=== PATIENT | male | born 1945 | race Caucasian/White ===

== ENCOUNTER 2020-01-18 11:27 | Outpatient (REF) | payer MEDICARE, SELFPAY ==
[2020-01-18 14:17] LABS: Hematocrit 45.1 % (42-52); Hemoglobin 14.9 g/dl (14.0-18.0); Mean Corpuscular Hemoglobin 28.7 pg (27.0-33.0); Mean Corpuscular Volume 86.9 fL (80-98); Mean Platelet Volume 11.5 fL (9.4-12.4); Platelet Count 200 X10*3/uL (160-400); Red Blood Count 5.19 X10*6/uL (4.60-5.80); Red Cell Distribution Width 12.4 % (11.0-16.0); White Blood Count 6.7 X10*3/uL (4.8-10.8)
[2020-01-18 14:58] LABS: Alanine Aminotransferase 22 U/L (0-40); Albumin Level 4.3 g/dL (3.5-5.0); Alkaline Phosphatase 70 U/L (39-117); Aspartate Amino Transferase 27 U/L (5-37); Bilirubin Direct 0.3 mg/dL (0.0-0.5); Bilirubin Total 0.9 mg/dL (0.0-1.0); Lipase 31 U/L (8-78); Total Protein 6.7 g/dL (6.5-8.0)
== END 2020-01-18 11:28 | disposition home or self-care (01) ==
LOC: HO.10HDL 11:27
PROVIDERS: Visit Provider Internal Medicine Gastroenterology
DX: R10.84 Generalized abdominal pain (principal)
CPT/HCPCS: 36415; 80076; 83690; 85027

== ENCOUNTER 2020-02-04 07:49 | Outpatient (REF) | payer MEDICARE, SELFPAY ==
--- NOTE | 2020-02-04 | US_ITS ---
EXAMINATION: US ABDOMEN COMPLETE CLINICAL INFORMATION: Abdominal pain. COMPARISON: None TECHNIQUE: Real-time imaging of the abdominal viscera. FINDINGS: PANCREAS: Normal. ABDOMINAL AORTA: The proximal, mid, and distal segments are normal in caliber. INFERIOR VENA CAVA: Visualized portions are normal. LIVER: Normal. The liver is normal in size. The liver contour is normal. Parenchymal echogenicity is normal. No focal hepatic lesion. There is no intrahepatic biliary duct dilatation seen. GALLBLADDER: Normal. The gallbladder is physiologically distended without evidence of stones, sludge, polyps, wall thickening or pericholecystic fluid. COMMON BILE DUCT: Normal in caliber measuring 0.32 cm in diameter. RIGHT KIDNEY: Normal. No hydronephrosis. No renal calculi or focal parenchymal lesions. The kidney measures 10.0 cm in maximum dimension. LEFT KIDNEY: Normal. No hydronephrosis. No renal calculi or focal parenchymal lesions. The kidney measures 12 cm in maximum dimension. SPLEEN: Normal. The spleen measures 9.4 cm in maximum dimension. FREE FLUID: None. US/US abdomen complete IMPRESSION: Unremarkable ultrasound abdomen complete.
== END 2020-02-04 07:50 | disposition home or self-care (01) ==
LOC: HO.US 07:49
PROVIDERS: Visit Provider Internal Medicine Gastroenterology
DX: R10.84 Generalized abdominal pain (principal)
CPT/HCPCS: 76700

== ENCOUNTER 2021-02-10 07:48 | Day surgery (SDC) | payer MEDICARE, SELFPAY ==
[2021-02-04 12:52] VITALS: BMI 27.8
--- NOTE | 2021-02-09 09:15 | HO.ANESPROP2 ---
Documented by User: Rianna Dumont NP 02/09/21 09:15 HPI - Anesthesia Eval Consult details Narrative: 75yo M for Upper Endoscopy and Colonoscopy ON LICENSE OF [facility] Past Medical History Medical History Pollard's esophagus BPH (benign prostatic hyperplasia) Elevated cholesterol HTN (hypertension) PTSD (post-traumatic stress disorder) Surgical History Surgical History History of esophagogastroduodenoscopy (EGD) Hx of colonoscopy Hx of hernia repair Hx of right knee surgery Hx of tonsillectomy Social History Social History Patient Tobacco Use Status: Former Tobacco user Quit Date: >40 yrs ago Tobacco use type: Cigarette Use of substances other than those prescribed or required for medical reasons: No Are you DNR?: No Advance Directives: No Advance Directives Information Provided: Yes Meds Allergies Allergy/AdvReac Type Severity Reaction Status Date / Time From DEMEROL Allergy Unknown UNKNOWN Uncoded 11/15/19 16:12 Home Medications Medication Instructions Recorded Confirmed Last Taken Type lisinopril 20 mg tablet 20 mg PO DAILY 02/04/21 02/04/21 Unknown History omeprazole 20 mg tablet,delayed 20 mg PO DAILY 02/04/21 02/04/21 Unknown History release psyllium 1 packet PO TID 02/04/21 02/04/21 Unknown History simvastatin 40 mg tablet 40 mg PO DAILY PRN 02/04/21 02/04/21 Unknown History Exam Exam Date and Time: February 09, 2021 0915 Height,Weight and Vital Signs: Height 5 ft 8 in Weight 83.007 kg Assessment and Plan Assessment Anesthesia Assessment: Chart Reviewed Documented by User: Jami Last MD 02/10/21 09:27 ON LICENSE OF [facility] Past Medical History Medical History Pollard's esophagus BPH (benign prostatic hyperplasia) Elevated cholesterol HTN (hypertension) PTSD (post-traumatic stress disorder) Family History Family history of problems with anesthesia: No Surgical History Surgical History History of esophagogastroduodenoscopy (EGD) Hx of colonoscopy Hx of hernia repair Hx of right knee surgery Hx of tonsillectomy History of Problems with Anesthesia: No Social History Social History Patient Tobacco Use Status: Former Tobacco user Quit Date: >40 yrs ago Tobacco use type: Cigarette Use of substances other than those prescribed or required for medical reasons: No Are you DNR?: No Advance Directives: No Advance Directives Information Provided: Yes Meds Allergies Allergy/AdvReac Type Severity Reaction Status Date / Time From DEMEROL Allergy Unknown UNKNOWN Uncoded 11/15/19 16:12 Home Medications Medication Instructions Recorded Confirmed Last Taken Type lisinopril 20 mg tablet 20 mg PO DAILY 02/04/21 02/04/21 Unknown History omeprazole 20 mg tablet,delayed 20 mg PO DAILY 02/04/21 02/04/21 Unknown History release psyllium 1 packet PO TID 02/04/21 02/04/21 Unknown History simvastatin 40 mg tablet 40 mg PO DAILY PRN 02/04/21 02/04/21 Unknown History Exam Height,Weight and Vital Signs: Height 5 ft 8 in Weight 83.007 kg Vital Signs Temp Pulse Resp BP Pulse Ox 02/10/21 08:24 98.4 F 70 16 129/77 98 Airway Mallampati Class: II TM Dist: >3cm Neck ROM: Full Heart: RRR Lungs: CTAB Assessment and Plan Assessment Anesthesia Assessment: Anesthesia Plan Discussed Final Anesthetic Review Family History of Problems with Anesthesia: No History of Problems with Anesthesia: No NPO: Yes ASA Class: II Final Preanesthetic Review: No Changes in Pt Med Stat, Meds/Allgs Chart Reviewed, Consent Obtained/Reviewed and Anes Risks/Benef Reviewed Patient Risk: Low Procedure Risk: Low Assessment/Block/Sedation in SS: Assess/Block/Sedation-SS Anesthetic Plan Anesthetic Plan: MAC: Disposition: Standard PACU
[2021-02-10 08:24] VITALS: BP 129/77; PULSE 70; RESP 16; TEMP 36.9; O2SAT 98
[2021-02-10] MEDS: Lactated Ringers 1,000 ML 100 ML IVCONT (08:39)
--- NOTE | 2021-02-10 09:04 | MHC.SHP ---
Pre-Procedural Eval Section A Date of Service: 02/10/21 The patient is an INPATIENT: No Changes since office visit: No Cold of Flu in the past 2 weeks, No New Medical Problems, No Changes in Medication and No Patient answered all questions The History & Physical has been completed within 30 days and I have reviewed it.: Yes Section B Chief Complaint: Pollard's, Fhx of colon cancer Allergies: Allergies Allergy/AdvReac Type Severity Reaction Status Date / Time From DEMEROL Allergy Unknown UNKNOWN Uncoded 11/15/19 16:12 Plan I have reviewed the history and physical and performed a pertinent physical examination on my patient. No changes have occurred unless specified.
--- NOTE | 2021-02-10 09:53 | PM.OP ---
Brief Operative Note Date of Service: 02/10/21 Pre-op diagnosis: barretts, screening Post-op diagnosis: same (colon polyps) Procedure: egd, colon Surgeon: Brian Brand Anesthesia: MAC Was an Building Trades Instructor used for this Procedure?: No Estimated blood loss (mL): 5 Pathology: other (bxs antrum, egj, rectal polyps) Condition: stable Disposition: PACU
[2021-02-10 09:57] VITALS: BP 80/50; PULSE 61; RESP 16; TEMP 36.5; O2SAT 98
--- NOTE | 2021-02-10 10:06 | OP_ITS ---
SURGEON: Brian Brand MD INDICATIONS: 1. Pollard's esophagus. 2. Colon cancer screening. PREOPERATIVE DIAGNOSIS: POSTOPERATIVE DIAGNOSIS: PROCEDURE PERFORMED: Upper endoscopy with biopsy, colonoscopy to the terminal ileum with biopsy. ESTIMATED BLOOD LOSS: COMPLICATIONS: ANESTHESIA: ASSISTANTS: SPECIMENS: MEDICATIONS: Monitored anesthesia care. DESCRIPTION OF PROCEDURE: History and physical performed. The risks and benefits of the procedure were explained to the patient. Informed consent was obtained. The patient was placed in the left lateral decubitus position. The Olympus video gastroscope was introduced into the esophagus, stomach, and duodenum. Examination was performed and the scope was removed. He was repositioned for colonoscopy. A digital rectal examination was performed and was found to be normal. The Olympus pediatric video colonoscope was introduced into the rectum and advanced to the cecum without difficulty. The cecum was identified by transillumination, palpation, and identification of ileocecal valve. Examination was performed and the scope was removed. He tolerated both procedures well and was returned to recovery area in stable condition. FINDINGS: UPPER ENDOSCOPY: Esophagus: The esophagus showed a less than 1 cm area of Pollard's esophagus with no raised lesions or ulcerated areas. Biopsies were obtained at the EG junction. Stomach: There was mild gastritis mainly in the fundus. Several benign-appearing gastric polyps were identified in the fundus as well measuring less than 10 mm. Antral biopsies were obtained. Duodenum: The bulb and second portion were normal. COLONOSCOPY: The terminal ileum was examined and appeared normal. The visualized colonic mucosa was normal. Quality of the prep was good. There was mild sigmoid diverticulosis. In the rectum, were 2 less than 5 mm polyps, which were removed with biopsy forceps. IMPRESSION: 1. Pollard's esophagus. 2. Colon polyps. RECOMMENDATIONS: 1. Follow up the biopsy results. 2. Further screening is optional based on the patient's age. MD SAUD Silverio/WAI / [phone]
[2021-02-10 10:12] VITALS: BP 111/63; PULSE 73; RESP 16; TEMP 36.5; O2SAT 97
== END 2021-02-10 10:41 | disposition home or self-care (01) ==
PROVIDERS: PCP Internal Medicine; Visit Provider Internal Medicine Gastroenterology
PROC: (CPT 45380; principal; 2021-02-10 09:00)
DX: Z12.11 Encounter for screening for malignant neoplasm of colon (principal); Z80.0 Family history of malignant neoplasm of digestive organs; K62.1 Rectal polyp; K57.30 Diverticulosis of large intestine without perforation or abscess without bleeding; K22.70 Barrett's esophagus without dysplasia; K29.50 Unspecified chronic gastritis without bleeding; K31.7 Polyp of stomach and duodenum; N40.0 Benign prostatic hyperplasia without lower urinary tract symptoms; I10 Essential (primary) hypertension; R00.0 Tachycardia, unspecified; E78.00 Pure hypercholesterolemia, unspecified; F43.10 Post-traumatic stress disorder, unspecified; Z79.899 Other long term (current) drug therapy; Z87.891 Personal history of nicotine dependence
CPT/HCPCS: 45380; 43239; 88305; 88342; J3010

== ENCOUNTER → 2022-02-02 11:23 | Outpatient (BNVA) | payer MEDICARE, SELFPAY | PROVIDERS: PCP Internal Medicine; Visit Provider Urology | DX: R97.20 Elevated prostate specific antigen [PSA] (principal); N40.0 Benign prostatic hyperplasia without lower urinary tract symptoms; N40.2 Nodular prostate without lower urinary tract symptoms | CPT/HCPCS: 51798; 99202 ==

== ENCOUNTER → 2022-02-24 13:00 | Outpatient (BNVA) | payer MEDICARE, SELFPAY | PROVIDERS: PCP Internal Medicine; Visit Provider Urology | DX: N40.2 Nodular prostate without lower urinary tract symptoms (principal); N40.0 Benign prostatic hyperplasia without lower urinary tract symptoms | CPT/HCPCS: 51798; 99212 ==

== ENCOUNTER 2022-03-23 12:02 | Outpatient (REF) | payer MEDICARE, SELFPAY ==
[2022-03-23 11:51] VITALS: BP 155/81; PULSE 76; RESP 16; TEMP 36.6; O2SAT 98; BMI 28.1
--- NOTE | 2022-03-23 12:16 | W.PM.OPN ---
Operative Note Operative Note Date of Service: 03/23/22 Narrative: Preoperative diagnosis: Elevated PSA Postoperative diagnosis: Elevated PSA Procedure: 1. transrectal ultrasound measurement of prostate 2. transrectal ultrasound-guided pudendal nerve block 3. transrectal ultrasound-guided prostate biopsy 12 core Surgeon: Dr. Jason Farley Anesthetic: Local Indications for procedure: Elevated PSA 4.6 Procedure: After informed consent was verified, the patient was brought into the procedure area and lay left-hand side down on the table. Patient identity confirmed. Perioperative antibiotics confirmed. Safety pause time out performed. LUCY performed to dilate rectal sphincter Iodine 10cc with Gel was placed per rectum Ultrasound probe was placed per rectum The prostate was measured in 3 dimensions Total volume equals 55 gm No cystic structures were noted No calcifications were noted at the surgical margin The prostate was otherwise heterogenous in nature An ultrasound-guided pudendal nerve block was performed using 10 cc of 1% lidocaine. 8 cc was placed at the base and 2 cc of the apex. A 12 core biopsy was performed with 6 cores each side. Two cores were taken at the apex, mid and base. Cores were spaced between lateral and medial. He tolerated the procedure well. Was able to ambulate to bathroom after 5 minutes. Printed instructions regarding antibiotic use and common side effects such as low-grade temperature, potential infection and bleeding were given Pathology: 12 core prostate biopsy.
[2022-03-23 12:19] VITALS: BP 131/60; PULSE 77; RESP 16; O2SAT 99
== END 2022-03-23 12:03 | disposition home or self-care (01) ==
LOC: HO.MS 12:02
PROVIDERS: PCP Internal Medicine; Visit Provider Urology
PROC: (CPT 55700; principal; 2022-03-23 12:00)
DX: R97.20 Elevated prostate specific antigen [PSA] (principal)
CPT/HCPCS: 55700; 76942; 88305

== ENCOUNTER → 2022-03-30 11:33 | Outpatient (BNVA) | payer MEDICARE, SELFPAY | PROVIDERS: PCP Internal Medicine; Visit Provider Urology | DX: C61 Malignant neoplasm of prostate (principal) | CPT/HCPCS: Q3014 ==

== ENCOUNTER → 2022-05-04 09:43 | Outpatient (BNVA) | payer MEDICARE, SELFPAY | PROVIDERS: PCP Internal Medicine; Visit Provider Urology | DX: C61 Malignant neoplasm of prostate (principal) | CPT/HCPCS: 96402; J9217 ==

== ENCOUNTER 2022-05-10 06:54 | Day surgery (SDC) | payer MEDICARE, SELFPAY ==
[2022-05-05 15:12] VITALS: BMI 28.1
--- NOTE | 2022-05-07 10:59 | HO.ANESPROP2 ---
HPI - Anesthesia Eval Consult details Narrative: 76yo M for Space OAR PMFSH Active Problems Active Problems: All Active Problems (Updated 03/30/22 @ 12:05 by Jason Farley MD) Prostate nodule (Acute) Elevated PSA (Acute) Prostate cancer (Acute) BPH (benign prostatic hyperplasia) (Acute) Past Medical History Medical History (Updated 03/30/22 @ 12:05 by Jason Farley MD) Pollard's esophagus BPH (benign prostatic hyperplasia) Elevated cholesterol HTN (hypertension) PTSD (post-traumatic stress disorder) Family History Family history of problems with anesthesia: No Surgical History Surgical History (Updated 05/05/22 @ 14:59 by Collette Douglas, RN) History of esophagogastroduodenoscopy (EGD) Hx of colonoscopy Hx of hernia repair Hx of prostate biopsy Hx of right knee surgery Hx of tonsillectomy History of Problems with Anesthesia: No Social History Social History Patient Tobacco Use Status: Former Tobacco user Quit Date: age 27 Tobacco use type: Cigarette Meds Allergies Allergy/AdvReac Type Severity Reaction Status Date / Time meperidine [From Demerol] Allergy Unknown Unknown Verified 05/05/22 10:48 Home Medications Medication Instructions Recorded Confirmed Last Taken Type lisinopril 20 mg tablet 20 mg PO DAILY 02/04/21 05/10/22 Unknown History omeprazole 20 mg tablet,delayed 20 mg PO DAILY 02/04/21 05/10/22 Unknown History release psyllium 1 packet PO TID 02/04/21 05/10/22 Unknown History simvastatin 40 mg tablet 40 mg PO DAILY PRN Constipation 02/04/21 05/10/22 Unknown History Exam Exam Date and Time: May 07, 2022 1059 Height,Weight and Vital Signs: Height 5 ft 8 in Weight 83.915 kg Assessment and Plan Assessment Anesthesia Assessment: Chart Reviewed Final Anesthetic Review Family History of Problems with Anesthesia: No History of Problems with Anesthesia: No
[2022-05-10 07:08] VITALS: BP 166/77; PULSE 75; RESP 18; TEMP 36.3; O2SAT 99; BMI 25.0
[2022-05-10] MEDS: Lactated Ringers 1,000 ML 100 ML IVCONT (07:45)
--- NOTE | 2022-05-10 07:49 | HO.ANESPROP2 ---
HPI - Anesthesia Eval Consult details Narrative: prostate ca for Space OAR PMFSH Active Problems Active Problems: All Active Problems (Updated 03/30/22 @ 12:05 by Jason Farley MD) Prostate nodule (Acute) Elevated PSA (Acute) Prostate cancer (Acute) BPH (benign prostatic hyperplasia) (Acute) Past Medical History Medical History (Updated 03/30/22 @ 12:05 by Jason Farley MD) Pollard's esophagus BPH (benign prostatic hyperplasia) Elevated cholesterol HTN (hypertension) PTSD (post-traumatic stress disorder) Family History Family history of problems with anesthesia: No Surgical History Surgical History (Updated 05/05/22 @ 14:59 by Collette Douglas RN) History of esophagogastroduodenoscopy (EGD) Hx of colonoscopy Hx of hernia repair Hx of prostate biopsy Hx of right knee surgery Hx of tonsillectomy History of Problems with Anesthesia: No Social History Social History Patient Tobacco Use Status: Former Tobacco user Quit Date: age 27 Tobacco use type: Cigarette Advance Directives: No Advance Directives Information Provided: Yes Meds Allergies Allergy/AdvReac Type Severity Reaction Status Date / Time meperidine [From Demerol] Allergy Unknown Unknown Verified 05/05/22 10:48 Active Medications: Current Medications Lactated Ringer's (Lr) 1,000 mls @ 100 mls/hr IVCONT .Q10H DONNA Last Admin: 05/10/22 07:45 Dose: 100 mls/hr Levofloxacin (Levaquin) 500 mg in 100 mls @ 100 mls/hr IV PREOP ONE Stop: 05/10/22 08:37 Home Medications Medication Instructions Recorded Confirmed Last Taken Type lisinopril 20 mg tablet 20 mg PO DAILY 02/04/21 02/02/22 Unknown History omeprazole 20 mg tablet,delayed 20 mg PO DAILY 02/04/21 02/02/22 Unknown History release psyllium 1 packet PO TID 02/04/21 02/02/22 Unknown History simvastatin 40 mg tablet 40 mg PO DAILY PRN Constipation 02/04/21 02/02/22 Unknown History Exam Exam Date and Time: May 10, 2022 0749 Height,Weight and Vital Signs: Height 5 ft 8 in Weight 74.843 kg Last Vital Signs Temp 97.4 F 05/10/22 07:08 Pulse 75 05/10/22 07:08 Resp 18 05/10/22 07:08 BP 166/77 H 05/10/22 07:08 Pulse Ox 99 05/10/22 07:08 O2 Del Method 05/10/22 07:08 Airway Mallampati Class: II Neck ROM: Full Heart: rr Lungs: cta Other: abdominal bruise from hormone shot Assessment and Plan Assessment Anesthesia Assessment: Anesthesia Plan Discussed and Chart Reviewed Final Anesthetic Review Family History of Problems with Anesthesia: No History of Problems with Anesthesia: No NPO: Yes ASA Class: II and III Final Preanesthetic Review: No Changes in Pt Med Stat, Meds/Allgs Chart Reviewed, Consent Obtained/Reviewed and Anes Risks/Benef Reviewed Patient Risk: Low Procedure Risk: Low Anesthetic Plan Anesthetic Plan: GA
--- NOTE | 2022-05-10 08:34 | MHC.SHP ---
Pre-Procedural Eval Section A Date of Service: 05/10/22 The patient is an INPATIENT: No Changes since office visit: No Cold of Flu in the past 2 weeks, No New Medical Problems, No Changes in Medication and No Patient answered all questions The History & Physical has been completed within 30 days and I have reviewed it.: Yes Section B Chief Complaint: Malignant neoplasm of prostate Allergies: Allergies Allergy/AdvReac Type Severity Reaction Status Date / Time meperidine [From Demerol] Allergy Unknown Unknown Verified 05/05/22 10:48 Plan Diagnosis/Plan: Unchanged ( prostate marker placement with space oar placement) I have reviewed the history and physical and performed a pertinent physical examination on my patient. No changes have occurred unless specified. Time Spent With Patient Time: Total time managing care of this patient today ____ minutes.
--- NOTE | 2022-05-10 09:35 | W.PM.OPN ---
Operative Note Operative Note Date of Service: 05/10/22 Narrative: Preoperative diagnosis: Prostate cancer Postoperative diagnosis: Prostate cancer Procedure: 1. Transrectal ultrasound-guided perineal gold seed placement 2. Treansrectal ultrasound-guided perineal SpaceOAR gel placement Surgeon: Dr. Jason Farley Anesthetic: Sedation Indications for procedure: Prostate Cancer Procedure: After informed consent was verified, the patient was brought into the operating room and anesthesia was performed per protocol. The patient was placed in a modified dorsal lithotomy position. Gel was placed per rectum Ultrasound probe was placed per rectum. The prostate was visualized in sagittal and transverse dimensions. Local anesthetic was infiltrated in the perineal area using 10 cc of lidocaine Visicoil seed markers were placed in a transperineal fashion using ultrasound guidance 2 gold seed markers placed in total. 1 on the right. 1 on the left. The purpose is for triangulation. The 2nd part of the procedure was placement of SpaceOAR gel to allow consolidation for radiation delivery. The delivery needle was advanced bevel down in the midline under ultrasound guidance to the apex of the prostate. It was advanced in the plane the prostate from the rectum to the midpoint of the prostate. Location was determined using sagittal and transverse imaging. At the midpoint of the prostate 1 cc of saline was placed to confirm needle position. A second cc of saline was placed to confirm spread toward the base of the prostate. With the needle in the confirmed position 10 cc of gel mixture was injected. Good separation was seen of the rectum from the prostate space running in the midline from the base toward the apex of the prostate. Following completion of the procedure the probe was removed from the rectum. He tolerated the procedure well. He was extubated in the operating room and transferred in stable condition to the recovery area. Pathology none Drains none
[2022-05-10 09:43] VITALS: BP 115/58; PULSE 80; RESP 14; TEMP 36.6; O2SAT 95
[2022-05-10 09:48] VITALS: BP 116/68; PULSE 73; RESP 16; O2SAT 95
[2022-05-10 09:53] VITALS: BP 123/64; PULSE 77; RESP 16; O2SAT 95
[2022-05-10] MEDS: Acetaminophen 325 MG TABLET 975 MG PO (09:56)
[2022-05-10 09:58] VITALS: BP 122/71; PULSE 77; RESP 16; O2SAT 95
[2022-05-10 10:13] VITALS: BP 128/69; PULSE 65; RESP 16; TEMP 36.6; O2SAT 97
== END 2022-05-10 10:32 | disposition home or self-care (01) ==
PROVIDERS: PCP Family Medicine; Visit Provider Urology
PROC: (CPT 55874; principal; 2022-05-10 08:20)
DX: C61 Malignant neoplasm of prostate (principal); N40.0 Benign prostatic hyperplasia without lower urinary tract symptoms; I10 Essential (primary) hypertension; E78.00 Pure hypercholesterolemia, unspecified; K22.70 Barrett's esophagus without dysplasia; F43.11 Post-traumatic stress disorder, acute; Z79.899 Other long term (current) drug therapy; Z88.8 Allergy status to other drugs, medicaments and biological substances; Z87.891 Personal history of nicotine dependence
CPT/HCPCS: 55874; 55876; A4648; C1889; J1956; J3010

== ENCOUNTER → 2022-08-11 10:19 | Outpatient (BNVA) | payer MEDICARE, SELFPAY | PROVIDERS: PCP Internal Medicine; Visit Provider Urology | DX: C61 Malignant neoplasm of prostate (principal) | CPT/HCPCS: 51798; 99212 ==

== ENCOUNTER 2022-10-29 08:28 | Outpatient (REF) | payer MEDICARE, SELFPAY ==
[2022-10-29 12:42] LABS: Prostate Specific Antigen < 0.10 ng/mL (<0.05-4.0)
[2022-11-04 13:08] LABS: Testosterone, Total 22 ng/dL (250-1100)
== END 2022-10-29 08:29 | disposition home or self-care (01) ==
LOC: HO.HMGCLDS 08:28
PROVIDERS: PCP Internal Medicine; Visit Provider Urology
DX: Z12.5 Encounter for screening for malignant neoplasm of prostate (principal); C61 Malignant neoplasm of prostate
CPT/HCPCS: 36415; 84153; 84403

== ENCOUNTER 2022-11-12 10:05 | Outpatient (AMB) | payer MEDICARE, SELFPAY ==
--- NOTE | 2022-11-12 10:06 | MHC.OFFVIS ---
Intake Intake Visit Reasons: 3m/PSA/Testosterone(pending) Intake Note: Patient presents for follow up PSA/Testosterone Urology Medications: none Blood Thinner: none Windows Systems Administrator Required: No Allergies meperidine [From Demerol] Allergy (Unknown, Verified 11/12/22 10:09) Unknown Medication List - Last Reconciled 11/12/22 by Jason Farley MD lisinopril 20 mg PO DAILY omeprazole 20 mg PO DAILY psyllium 1 packet PO TID simvastatin 40 mg PO DAILY PRN HPI HPI Comments History of Present Illness Details Avila is a pleasant male. He is a patient of Dr. Larkin as PCP and Dr[facility]. He is seen for the following urologic conditions - prostate cancer - prostate nodule Telemedicine Evaluation 15 min Consultation Doximity Omkar Video attempted Six months in GnRH Testosterone and PSA remain low Hot flashes resolving, has noted decline in strength with hormones Of note reports feeling more personable and the hormone blockade appears to have taken the edge of his PTSD Labs 11/20 P <0.1, T Prostate Cancer - 03/2223 grade group 2, initial PSA 4.2 - agent orange exposure 1968 through 07/20 completed radiation. [facility]. Twenty-five hyperfractionated sessions 05/20 SpaceOar Placement, GnRH administered 03/22 Biopsy Fifi score: 7 (3+4) (left: base, mid and apex), 6 (3+3) (right mid medial and right apex lateral) ?Number cores positive: 8, Total number of cores: 15 % of tissue involved: 13 % of all tissue examined Periprostatic fat invasion:Not identified, Seminal vesicle invasion: Not identified, Perineural invasion: Present, Lymphovascular invasion: Not identified Imaging - 02/18 prostate MRI 55 g left mid peripheral posterior extending to right apical medial peripheral lesion 2.4 x 0.7 cm lesion PI-RADS 5 Elevated PSA PSA 10/16 3.8, 10/19 4.2 Background of enlarged prostate for many years Minimal urinary symptoms LUCY 2+ prostate nodule left apex Imaging - 02/18 prostate MRI 55 g left mid peripheral posterior extending to right apical medial peripheral lesion 2.4 x 0.7 cm lesion PI-RADS 5 PFSH Medical History Pollard's esophagus BPH (benign prostatic hyperplasia) PTSD (post-traumatic stress disorder) Elevated cholesterol HTN (hypertension) Surgical History Hx of prostate biopsy Hx of hernia repair Hx of tonsillectomy Hx of colonoscopy History of esophagogastroduodenoscopy (EGD) Hx of right knee surgery Social History Patient Tobacco Use Status: Former Tobacco user Quit Date: age 27 Tobacco use type: Cigarette Review of Systems Const All systems reviewed & are unremarkable except as noted in HPI and below Reports no additional complaints Resp Reports no additional complaints GI Reports no additional complaints Reports as per HPI Musc Reports no additional complaints Physical Exam Telemedicine evaluation Appropriate responses Regular breathing rate and rhythm HEENT Head: Yes normal to inspection Ears: hearing grossly normal bilaterally Eyes General: appearance normal, both eyes and all related structures Neck Neck: Yes normal visual inspection Chest Chest palpation & inspection: normal inspection of the chest Resp Effort & Inspection: normal respiratory effort and able to speak in complete sentences Assessment & Plan Assessment & Plan (1) Prostate cancer: Comment: 03/22 clinically localized intermediate risk favorable Code(s): C61 - Malignant neoplasm of prostate Plan Four month follow-up labs Orders: Orders Prostate Specific Antigen 4 Months C61 - Malignant neoplasm of prostate Testosterone, Total 4 Months C61 - Malignant neoplasm of prostate Patient Instructions: Imaging studies, laboratory and physical exam results were discussed and reviewed in detail. No major barriers to patient understanding were identified. An opportunity to ask questions regarding the treatment plan was provided. All questions were answered. The patient expressed understanding and agreement with the above treatment plan. The patient is aware they should contact our office by phone for worsening of their current condition or the appearance of new urologic symptoms. Compliance is encouraged with any medications and followup testing that is ordered. It is a privilege to participate in the urologic care of your patient. If you have any questions or concerns regarding treatment for the above conditions, or other urologic issues, please do not hesitate to contact me. The office telephone contact is [phone]. This note is constructed using voice recognition software. While every effort has been made to ensure accuracy business education instructor errors may have been included. Yours sincerely, Dr Jason Farley MD, [facility] - Urology Providers of Expert, Compassionate Care for the Genitourinary System Telehealth Telehealth Location of provider rendering services: practice address Location of patient: address on file Patient Identification confirmed using: Name, : Yes Telehealth method: voice only Patient verbally consented to treatment: Yes Patient verbally consented to billing insurance company: Yes Patient informed of any privacy concerns related to visit: Yes Coding Level of Care Code Tele Est Pt Level 3 (05755) Diagnoses Prostate cancer C61
== END 2022-11-12 10:28 | disposition home or self-care (01) ==
LOC: HO.HUSH 10:06
PROVIDERS: PCP Internal Medicine; Visit Provider Urology
DX: C61 Malignant neoplasm of prostate (principal)
CPT/HCPCS: 99442

== ENCOUNTER → 2022-11-12 10:05 | Outpatient (BNVA) | payer MEDICARE, SELFPAY | PROVIDERS: PCP Internal Medicine; Visit Provider Urology ==

== ENCOUNTER 2023-03-09 11:53 | Outpatient (REF) | payer MEDICARE, SELFPAY ==
[2023-03-09 15:52] LABS: Prostate Specific Antigen < 0.10 ng/mL (<0.05-4.0)
[2023-03-15 16:43] LABS: Testosterone, Total 66 ng/dL (250-1100)
== END 2023-03-09 11:54 | disposition home or self-care (01) ==
LOC: HO.HMGCLDS 11:53
PROVIDERS: PCP Internal Medicine; Visit Provider Urology
DX: C61 Malignant neoplasm of prostate (principal); Z12.5 Encounter for screening for malignant neoplasm of prostate
CPT/HCPCS: 36415; 84153; 84403

== ENCOUNTER 2023-03-24 15:04 | Outpatient (AMB) | payer MEDICARE, SELFPAY ==
--- NOTE | 2023-03-24 15:05 | MHC.OFFVIS ---
Intake Intake Visit Reasons: PSA/Testo(set) Intake Note: Patient is Present for Telephone Follow Up labs Urology Med: None Antibiotic Allergy:none Blood Thinner:none Allergies meperidine [From Demerol] Allergy (Unknown, Verified 11/12/22 10:09) Unknown Medication List - Last Reconciled 03/24/23 by Jason Farley MD lisinopril 20 mg PO DAILY omeprazole 20 mg PO DAILY psyllium 1 packet PO TID simvastatin 40 mg PO DAILY PRN HPI HPI Comments History of Present Illness Details Avila is a pleasant male. He is a patient of Dr. Larkin as PCP and Dr[facility] Lopez as [facility]. He is seen for the following urologic conditions - prostate cancer - prostate nodule Telemedicine Evaluation 15 min Consultation Doximity Omkar Video attempted Slowly recovering testosterone PSA remains well controlled May come off finasteride Did note during GnRH feeling more personable and the hormone blockade appears to have taken the edge of his PTSD Labs 11/20 P <0.1, T 22, 03/23 <0.1 T 66 Prostate Cancer - 03/2223 grade group 2, initial PSA 4.2 - agent orange exposure 1968 through 07/20 completed radiation. [facility]. Twenty-five hyperfractionated sessions 05/20 SpaceOar Placement, GnRH administered 03/22 Biopsy Fifi score: 7 (3+4) (left: base, mid and apex), 6 (3+3) (right mid medial and right apex lateral) ?Number cores positive: 8, Total number of cores: 15 % of tissue involved: 13 % of all tissue examined Periprostatic fat invasion:Not identified, Seminal vesicle invasion: Not identified, Perineural invasion: Present, Lymphovascular invasion: Not identified Imaging - 02/18 prostate MRI 55 g left mid peripheral posterior extending to right apical medial peripheral lesion 2.4 x 0.7 cm lesion PI-RADS 5 Elevated PSA PSA 10/16 3.8, 10/19 4.2 Background of enlarged prostate for many years Minimal urinary symptoms LUCY 2+ prostate nodule left apex Imaging - 02/18 prostate MRI 55 g left mid peripheral posterior extending to right apical medial peripheral lesion 2.4 x 0.7 cm lesion PI-RADS 5 PFSH Medical History Pollard's esophagus BPH (benign prostatic hyperplasia) PTSD (post-traumatic stress disorder) Elevated cholesterol HTN (hypertension) Surgical History Hx of prostate biopsy Hx of hernia repair Hx of tonsillectomy Hx of colonoscopy History of esophagogastroduodenoscopy (EGD) Hx of right knee surgery Social History Patient Tobacco Use Status: Former Tobacco user Quit Date: age 27 Tobacco use type: Cigarette Review of Systems Const All systems reviewed & are unremarkable except as noted in HPI and below Reports no additional complaints Resp Reports no additional complaints GI Reports no additional complaints Reports as per HPI Musc Reports no additional complaints Physical Exam Telemedicine evaluation Appropriate responses Regular breathing rate and rhythm HEENT Head: Yes normal to inspection Ears: hearing grossly normal bilaterally Eyes General: appearance normal, both eyes and all related structures Neck Neck: Yes normal visual inspection Chest Chest palpation & inspection: normal inspection of the chest Resp Effort & Inspection: normal respiratory effort and able to speak in complete sentences Assessment & Plan Assessment & Plan (1) Prostate cancer: Comment: 03/22 clinically localized intermediate risk favorable Code(s): C61 - Malignant neoplasm of prostate Plan Continue surveillance Orders: Orders Prostate Specific Antigen 4 Months C61 - Malignant neoplasm of prostate Testosterone, Total 4 Months C61 - Malignant neoplasm of prostate Patient Instructions: Imaging studies, laboratory and physical exam results were discussed and reviewed in detail. No major barriers to patient understanding were identified. An opportunity to ask questions regarding the treatment plan was provided. All questions were answered. The patient expressed understanding and agreement with the above treatment plan. The patient is aware they should contact our office by phone for worsening of their current condition or the appearance of new urologic symptoms. Compliance is encouraged with any medications and followup testing that is ordered. It is a privilege to participate in the urologic care of your patient. If you have any questions or concerns regarding treatment for the above conditions, or other urologic issues, please do not hesitate to contact me. The office telephone contact is [phone]. This note is constructed using voice recognition software. While every effort has been made to ensure accuracy child support specialist errors may have been included. Yours sincerely, Dr Jason Farley MD, BETTY [facility] - Urology Providers of Expert, Compassionate Care for the Genitourinary System Telehealth Telehealth Location of provider rendering services: practice address Location of patient: address on file Patient Identification confirmed using: Name, : Yes Telehealth method: voice only Patient verbally consented to treatment: Yes Patient verbally consented to billing insurance company: Yes Patient informed of any privacy concerns related to visit: Yes Coding Level of Care Code Tele Est Pt Level 4 (94815) Diagnoses Prostate cancer C61
== END 2023-03-24 15:55 | disposition home or self-care (01) ==
LOC: HO.HUSH 15:04
PROVIDERS: PCP Internal Medicine; Visit Provider Urology
DX: C61 Malignant neoplasm of prostate (principal)
CPT/HCPCS: 99442

== ENCOUNTER → 2023-03-24 15:04 | Outpatient (BNVA) | payer MEDICARE, SELFPAY | PROVIDERS: PCP Internal Medicine; Visit Provider Urology ==

== ENCOUNTER 2023-06-28 08:34 | Outpatient (REF) | payer MEDICARE, SELFPAY ==
[2023-06-28 11:14] LABS: Prostate Specific Antigen 0.13 ng/mL (<0.05-4.0)
[2023-07-02 14:53] LABS: Testosterone, Total 388 ng/dL (250-1100)
== END 2023-06-28 08:35 | disposition home or self-care (01) ==
LOC: HO.HMGCLDS 08:34
PROVIDERS: PCP Internal Medicine; Visit Provider Urology
DX: C61 Malignant neoplasm of prostate (principal); Z12.5 Encounter for screening for malignant neoplasm of prostate
CPT/HCPCS: 36415; 84153; 84403

== ENCOUNTER 2023-07-26 10:10 | Outpatient (AMB) | payer MEDICARE, SELFPAY ==
--- NOTE | 2023-07-26 10:19 | MHC.OFFVIS ---
Intake Visit Reasons: 4M PSA/Testosterone(set) Allergies meperidine [From Demerol] Allergy (Unknown, Verified 11/12/22 10:09) Unknown HPI Comments Details: Avila is a pleasant male. He is a patient of Dr. Larkin as PCP and Dr[facility] Lopez as [facility]. He is seen for the following urologic conditions - prostate cancer - prostate nodule Testosterone recovered PSA control Continue to follow every 4 months Labs 11/20 P <0.1, T 22, 03/23 <0.1 T 66, 06/21 P 0.13 T 388 Prostate Cancer - 03/2223 grade group 2, initial PSA 4.2 - agent orange exposure 1968 through 07/20 completed radiation. [facility]. Twenty-five hyperfractionated sessions 05/20 SpaceOar Placement, GnRH administered 03/22 Biopsy [place] score: 7 (3+4) (left: base, mid and apex), 6 (3+3) (right mid medial and right apex lateral) ?Number cores positive: 8, Total number of cores: 15 % of tissue involved: 13 % of all tissue examined Periprostatic fat invasion:Not identified, Seminal vesicle invasion: Not identified, Perineural invasion: Present, Lymphovascular invasion: Not identified Imaging - 02/18 prostate MRI 55 g left mid peripheral posterior extending to right apical medial peripheral lesion 2.4 x 0.7 cm lesion PI-RADS 5 Elevated PSA PSA 10/16 3.8, 10/19 4.2 Background of enlarged prostate for many years Minimal urinary symptoms LUCY 2+ prostate nodule left apex Imaging - 02/18 prostate MRI 55 g left mid peripheral posterior extending to right apical medial peripheral lesion 2.4 x 0.7 cm lesion PI-RADS 5 PFSH Medical History Pollard's esophagus BPH (benign prostatic hyperplasia) PTSD (post-traumatic stress disorder) Elevated cholesterol HTN (hypertension) Surgical History Hx of prostate biopsy Hx of hernia repair Hx of tonsillectomy Hx of colonoscopy History of esophagogastroduodenoscopy (EGD) Hx of right knee surgery Social History Patient Tobacco Use Status: Former Tobacco user Tobacco use type: Cigarette Review of Systems Const Denies chills and Denies fever(s) Card Reports no additional complaints and Denies syncope Resp Denies cough GI Denies abdominal pain and Denies heartburn Reports as per HPI and Denies change in libido Neuro Denies syncope Psych Denies change in libido Endo Denies change in libido Physical Exam Const General: cooperative, healthy appearing, comfortable and no acute distress Orientation/consciousness: patient oriented x3 HEENT Face and sinus: Yes normal facial exam Mouth: moist mucous membranes Neck Neck: Yes normal visual inspection, Yes full ROM and Yes trachea midline Chest Chest palpation & inspection: normal inspection of the chest Resp Effort & Inspection: normal respiratory effort, able to speak in complete sentences and no respiratory distress GI Inspection: Yes normal to inspection Back/Spine/Pelvis Cervical Spine: normal cervical lordosis Thoracic/Lumbar Spine: thoracic and lumbar spine normal to inspection Skin General skin exam: no rashes or lesions noted Neuro General: patient oriented x3, gait normal, tone normal and moves all extremities Extrem General: Yes normal to inspection and Yes capillary refill normal Assessment & Plan Assessment & Plan (1) Prostate cancer: Comment: 03/22 clinically localized intermediate risk favorable Code(s): C61 - Malignant neoplasm of prostate Category: Medical Plan Four month follow-up lab work Patient Instructions: Imaging studies, laboratory and physical exam results were discussed and reviewed in detail. No major barriers to patient understanding were identified. An opportunity to ask questions regarding the treatment plan was provided. All questions were answered. The patient expressed understanding and agreement with the above treatment plan. The patient is aware they should contact our office by phone for worsening of their current condition or the appearance of new urologic symptoms. Compliance is encouraged with any medications and followup testing that is ordered. It is a privilege to participate in the urologic care of your patient. If you have any questions or concerns regarding treatment for the above conditions, or other urologic issues, please do not hesitate to contact me. The office telephone contact is [phone]. This note is constructed using voice recognition software. While every effort has been made to ensure accuracy medical scientific officer errors may have been included. Yours sincerely, Dr Jason Farley MD, BETTY [facility] - Urology Providers of Expert, Compassionate Care for the Genitourinary System Coding Level of Care Code Est Pt Level 3 (63815) Diagnoses Prostate cancer C61
== END 2023-07-26 10:55 | disposition home or self-care (01) ==
PROVIDERS: PCP Internal Medicine; Visit Provider Urology
DX: C61 Malignant neoplasm of prostate (principal)
CPT/HCPCS: 99213

== ENCOUNTER → 2023-07-26 10:10 | Outpatient (BNVA) | payer MEDICARE, SELFPAY | PROVIDERS: PCP Internal Medicine; Visit Provider Urology | DX: C61 Malignant neoplasm of prostate (principal) | CPT/HCPCS: 99212 ==

== ENCOUNTER 2023-11-03 08:22 | Outpatient (REF) | payer MEDICARE, SELFPAY ==
[2023-11-10 14:04] LABS: Testosterone, Free 26.9 pg/mL (30.0-135.0); Testosterone, Total 369 ng/dL (250-1100)
== END 2023-11-03 08:23 | disposition home or self-care (01) ==
LOC: HO.10HDL 08:22
PROVIDERS: Visit Provider Urology
DX: R97.20 Elevated prostate specific antigen [PSA] (principal); N40.2 Nodular prostate without lower urinary tract symptoms; C61 Malignant neoplasm of prostate; N40.0 Benign prostatic hyperplasia without lower urinary tract symptoms
CPT/HCPCS: 36415; 84402; 84403

== ENCOUNTER 2023-11-25 08:45 | Outpatient (AMB) | payer MEDICARE, SELFPAY ==
--- NOTE | 2023-11-25 08:43 | MHC.OFFVIS ---
Intake Visit Reasons: 4M Follow Up-PSA/Testo(Set) Intake Note: Patient is Present for Telephone 4m Follow Up/psa/testo Urology Med: None Antibiotic Allergy:none Blood Thinner:none Sap Bi Architect Required: No Allergies meperidine [From Demerol] Allergy (Unknown, Verified 11/25/23 08:44) Unknown Medication List - Last Reconciled 11/25/23 by Jason Farley MD lisinopril 20 mg PO DAILY omeprazole 20 mg PO DAILY psyllium 1 packet PO TID simvastatin 40 mg PO DAILY PRN HPI Comments Details: Avila is a pleasant male. He is a patient of Dr. Larkin as PCP and Dr[facility] Lopez as [facility]. He is seen for the following urologic conditions - prostate cancer - prostate nodule Telemedicine Evaluation 15 min Consultation Doximity Omkar Video attempted PSA control Continue to follow every 6 months Labs 11/20 P <0.1, T 22, 03/23 <0.1 T 66, 06/21 P 0.13 T 388, 11/21 P 0.15 369 Prostate Cancer - 03/2223 grade group 2, initial PSA 4.2 - agent orange exposure 1968 through 07/20 completed radiation. [facility]. Twenty-five hyperfractionated sessions 05/20 SpaceOar Placement, GnRH administered 03/22 Biopsy [place] score: 7 (3+4) (left: base, mid and apex), 6 (3+3) (right mid medial and right apex lateral) ?Number cores positive: 8, Total number of cores: 15 % of tissue involved: 13 % of all tissue examined Periprostatic fat invasion:Not identified, Seminal vesicle invasion: Not identified, Perineural invasion: Present, Lymphovascular invasion: Not identified Imaging - 02/18 prostate MRI 55 g left mid peripheral posterior extending to right apical medial peripheral lesion 2.4 x 0.7 cm lesion PI-RADS 5 Elevated PSA PSA 10/16 3.8, 10/19 4.2 Background of enlarged prostate for many years Minimal urinary symptoms LUCY 2+ prostate nodule left apex Imaging - 02/18 prostate MRI 55 g left mid peripheral posterior extending to right apical medial peripheral lesion 2.4 x 0.7 cm lesion PI-RADS 5 PFSH Medical History Pollard's esophagus BPH (benign prostatic hyperplasia) PTSD (post-traumatic stress disorder) Elevated cholesterol HTN (hypertension) Surgical History Hx of prostate biopsy Hx of hernia repair Hx of tonsillectomy Hx of colonoscopy History of esophagogastroduodenoscopy (EGD) Hx of right knee surgery Social History Patient Tobacco Use Status: Former Tobacco user Tobacco use type: Cigarette Review of Systems Const All systems reviewed & are unremarkable except as noted in HPI and below Reports no additional complaints Resp Reports no additional complaints GI Reports no additional complaints Reports as per HPI Musc Reports no additional complaints Physical Exam Telemedicine evaluation Appropriate responses Regular breathing rate and rhythm HEENT Head: Yes normal to inspection Ears: hearing grossly normal bilaterally Eyes General: appearance normal, both eyes and all related structures Neck Neck: Yes normal visual inspection Chest Chest palpation & inspection: normal inspection of the chest Resp Effort & Inspection: normal respiratory effort and able to speak in complete sentences Telehealth Telehealth Location of provider rendering services: practice address Location of patient: address on file Patient Identification confirmed using: Name, : Yes Telehealth method: voice only Patient verbally consented to treatment: Yes Patient verbally consented to billing insurance company: Yes Patient informed of any privacy concerns related to visit: Yes Assessment & Plan Assessment & Plan (1) Prostate cancer: Comment: 03/22 clinically localized intermediate risk favorable Code(s): C61 - Malignant neoplasm of prostate Category: Medical Plan Six-month follow-up PSA office Orders: Orders Prostate Specific Antigen 6 Months C61 - Malignant neoplasm of prostate Patient Instructions: Imaging studies, laboratory and physical exam results were discussed and reviewed in detail. No major barriers to patient understanding were identified. An opportunity to ask questions regarding the treatment plan was provided. All questions were answered. The patient expressed understanding and agreement with the above treatment plan. The patient is aware they should contact our office by phone for worsening of their current condition or the appearance of new urologic symptoms. Compliance is encouraged with any medications and followup testing that is ordered. It is a privilege to participate in the urologic care of your patient. If you have any questions or concerns regarding treatment for the above conditions, or other urologic issues, please do not hesitate to contact me. The office telephone contact is [phone]. This note is constructed using voice recognition software. While every effort has been made to ensure accuracy circuits engineer errors may have been included. Yours sincerely, Dr Jason Farley MD, BETTY [facility] - Urology Providers of Expert, Compassionate Care for the Genitourinary System Coding Level of Care Code Tele Est Pt Level 3 (45619) Diagnoses Prostate cancer C61
== END 2023-11-25 09:18 | disposition home or self-care (01) ==
LOC: HO.HUSH 08:45
PROVIDERS: PCP Internal Medicine; Visit Provider Urology
DX: C61 Malignant neoplasm of prostate (principal)
CPT/HCPCS: 99442

== ENCOUNTER → 2023-11-25 08:45 | Outpatient (BNVA) | payer MEDICARE, SELFPAY | PROVIDERS: PCP Internal Medicine; Visit Provider Urology ==

== ENCOUNTER 2024-05-08 08:48 | Outpatient (REF) | payer MEDICARE, SELFPAY ==
--- OUTSIDE RECORDS SUMMARY | 2024-05-08 09:38 | XMS_ITS ---
Author Name [facility] [facility] [place] Address [address] [place] [id number] Care Team Providers Care Linen Sorter Name Role Phone RAJAN RIZO Primary Care Provider Unavailabl e Insurance Providers: All historical and current Section Date Range: From patient's date of to the date document was created. This section includes the names of all active insurance providers for the patient. Insurance Provider Type of Coverage Plan Name Start of Policy Coverage End of Policy Coverage Group Number Member ID Insurance Provider's Telephone Number Policy Aldana's Name Patient's Relationship to Policy Aldana [facility] (WNR) MEDICARE ADVANTAGE [facility] (W[facility]) Feb 28, 2013 [id number] [facility]IENT [facility] Feb 28, 2013 [id number]UNOZ PATIENT Selected Encounter This section includes the information on record at [place] for the Encounter. Date/Time Encounter Type Encounter Description Reason Pro vider Source Jun 16, 2023 02:36 PM Outpatient Encounter ADMIN PAT ACTIVTIES (MASNONCT) IHE Encounter Template Text not used by [place] Plan of Treatment: Future Appointments (+ 6 months) and Future Tests (+/- 45 days) The Plan of Treatment section includes future care activities for the patient from all [facility] treatment[facility]ilities. This section includes future appointments and future orders which are active, pending or scheduled. Future Appointments This section includes appointments that were scheduled to occur 6 months from the date of the Encounter, up to a maximum of 20 appointments. The data comes from all [place] treatment facilities. Appointment Date/Time Appointment Type Appointme nt Facility Name July 29, 2023 07:30 AM [facility]ULATORY [facility] NONE [facility] [place] [facility] July 29, 2023 08:30 AM AMBULATORY - MEDICINE [facility] [place] [facility] Aug 04, 2023 11:00 AM AMBULATORY - MEDICINE [facility] [place] [facility] Sep 06, 2023 11:00 AM AMBULATORY - NONE [facility] [place] [facility] Sep 21, 2023 07:30 AM AMBULATORY - NONE [facility] [place] [facility] Oct 11, 2023 11:00 AM AMBULATORY - MEDICINE [facility] [place] [facility] Oct 25, 2023 09:45 AM AMBULATORY - NONE [facility] [place] [facility] Nov 22, 2023 09:00 AM AMBULATORY - [facility] Social History: Smoking Status (Most current) and Tobacco Use (All prior to encounter date) This section includes the most current, and the historical, smoking and tobacco- related health factors from the [place] facility where the Encounter took place. Current Smoking Status This section includes the most current smoking, or tobacco-related health factor, from the [place] facility where the Encounter took place. Date/Time Current Smoking Status Comment Ellie gamez Dec 13, 2018 11:47 AM ORYX ADMIT TOBACCO SCREEN NO [facility] Tobacco Use History This section includes a history of the smoking, or tobacco-related health factors, that were collected on or before the date of the Encounter. The data comes from the [place] facility where the Encounter took place. Date/Time Smoking Status/Tobacco Use Comment F acility Aug 22, 2018 11:38 AM [place]ACCO [facility] [place] [facility] Aug 22, 2018 11:38 AM VA-TOBACCO QUIT 15 YRS OR MORE [facility] Encounter Notes: All associated encounter notes This section contains the clinical notes associated to the Encounter. Date/Time Encounter Note(s) Provider Source Jun 16, 2023 02:36 PM PHARMACY NOTE: LOCAL TITLE: V1 PHARMACY CUSTOMER CARE MEDICATION RENEWAL STANDARD TITLE: PHARMACY NOTE DATE OF NOTE: JUN 16, 2023@14:36 ENTRY DATE: JUN 16, 2023@14:36:35 AUTHOR: YASMEEN DOUGLSA EXP COSIGNER: URGENCY: STATUS: COMPLETED V1 PHARMACY CUSTOMER CARE MEDICATION RENEWAL Has ADDENDA Date: May Division: [facility] referred by Pharmacy Call Center for medication renewal: Non-controlled/maintenan ce medication Medications requested: [id number] LISINOPRIL 20MG TAB [id number] OMEPRAZOLE 20MG EC CAP Defer to primary care provider To be mailed . Please review and renew if appropriate. *This note was generated by [facility] Customer Care. If you have any questions or need assistance, do not contact this author. Please refer all questions to your local, on-site pharmacy departments. /gelacio/ Albert Douglas (Alice) molding fitter Hearing Healthcare Practitioner, [place]/Pharmacy Customer Care Signed: 06/16/2023 14:36 Receipt Acknowledged By: 06/16/2023 14:43 /gelacio/ REBECCA MORA LPN PACT 10 for KIARA GLOVER 06/19/2023 10:56 /es/ RAJAN RIZO MD Primary Care Physician 06/17/2023 ADDENDUM STATUS: COMPLETED RXs received by pharmacy. does not have a CC consult. Rxs fowarded to PCP /gelacio/ [facility] CLINICAL PHARMACIST Signed: 06/17/2023 10:13 YASMEEN DOUGLAS [facility]
--- OUTSIDE RECORDS SUMMARY | 2024-05-08 09:39 | XMS_ITS | Encounter Summary ---
Author Name [facility] [place] [facility] [place] Address [address] [place] [id number] Care Team Providers Care Electrical Line Mechanic Name Role Phone RAJAN RIZO Primary Care [...] Name Patient's Relationship to Policy Aldana [facility] (WNR) MEDICARE ADVANTAGE [facility] (WNR) Feb 28, 2013 [id number] ALEXANDER MUNOZ PATIENT [facility]ANCE [facility] Feb 28, 2013 [id number] ALEXANDER MUNOZ PATIENT Selected Encounter This section includes the information on record at [place] for the Encounter. Date/Time Encounter Type Encounter Description Reason Pro vider Source Dec 01, 2023 12:55 PM Outpatient Encounter COMMUNITY CARE CONSULT IHE Encounter Template Text not used by [facility] Plan of Treatment: Future Appointments (+ 6 [...] 20 appointments. The data comes from all [place] treatment facilities. Appointment Date/Time Appointment Type Appointme nt Facility Name Dec 20, 2023 09:00 AM AMBULATORY - REHAB MEDICIN E [facility] Dec 27, 2023 10:45 AM AMBULATORY - MEDICINE [facility] Social History: Smoking Status (Most current) and Tobacco Use (All prior to encounter date) This section includes the most current, and the historical, smoking and tobacco- related health factors from the [place] facility where the Encounter took place. Current Smoking Status This section includes the most current smoking, or tobacco-related health factor, from the [place] facility where the Encounter took place. Date/Time Current Smoking Status Comment Facil ity Dec 13, 2018 11:47 AM ORYX ADMIT TOBACCO SCREEN NO [facility] Tobacco Use History This section includes a history of the smoking, or tobacco-related health factors, that were collected on or before the date of the Encounter. The data comes from the [place] facility where the Encounter took place. Date/Time Smoking Status/Tobacco Use Comment F acility Aug 22, 2018 11:38 AM VA-TOBACCO FORMER USER [facility] Aug 22, 2018 11:38 AM VA-TOBACCO QUIT 15 YRS OR MORE [facility] Encounter Notes: All associated encounter notes This section contains the clinical notes associated to the Encounter. Date/Time Encounter Note(s) Provider Source Dec 01, 2023 01:33 PM ADDENDUM: LOCAL TITLE: Addendum STANDARD TITLE: ADDENDUM DATE OF NOTE: DEC 01, 2023@13:33:24 ENTRY DATE: DEC 01, 2023@13:33:25 AUTHOR: KIARA GLOVER EXP COSIGNER: URGENCY: STATUS: COMPLETED Left a VM for the inquiring if his Non-VA PCP has done his cardiac clearance yet and if not to please shedule with the provider and have the notes faxed to the [facility]. Will forward this message to dental. /gelacio/ KIARA GLOVER RN REGISTERED NURSE Signed: 12/01/2023 13:34 Receipt Acknowledged By: 12/09/2023 07:16 /gelacio/ EMELI BURKS DMD Staff Dentist * AWAITING SIGNATURE * MISTY HOWARD === --- Original Document --- 12/01/23 ADMINISTRATIVE NOTE: is in need of cardiac clearance before he can be scheduled with [facility], please assist. /gelacio/ KI PHELPS ADVANCED CLIENT RELATION SPECIALIST Signed: 12/01/2023 12:57 Receipt Acknowledged By: 12/01/2023 13:20 /preston GLOVER RN REGISTERED NURSE 12/01/2023 15:18 /gelacio/ RAJAN RIZO MD Primary Care Physician 12/01/2023 15:56 /preston MORA LPN [facility] [place] [facility] Dec 01, 2023 12:55 PM ADMINISTRATIVE NOTE: LOCAL TITLE: ADMINISTRATIVE NOTE STANDARD TITLE: ADMINISTRATIVE NOTE DATE OF NOTE: DEC 01, 2023@12:55 ENTRY DATE: DEC 01, 2023@12:55:51 AUTHOR: KI PHELPS EXP COSIGNER: URGENCY: STATUS: COMPLETED ADMINISTRATIVE NOTE Has ADDENDA [place] is in need of cardiac clearance before he can be scheduled with [facility], please assist. /preston PHELPS ADVANCED CLIENT RELATION SPECIALIST Signed: 12/01/2023 12:57 Receipt Acknowledged By: 12/01/2023 13:20 /preston GLOVER RN REGISTERED NURSE 12/01/2023 15:18 /preston RIZO MD Primary Care Physician 12/01/2023 15:56 /preston MROA LPN PACJuan Pablo 10 12/01/2023 ADDENDUM STATUS: COMPLETED Left a VM for the inquiring if his Non-VA PCP has done his cardiac clearance yet and if not to please shedule with the provider and have the notes faxed to the VA. Will forward this message to dental. /es/ KIARA FALES, RN REGISTERED NURSE Signed: 12/01/2023 13:34 Receipt Acknowledged By: * AWAITING SIGNATURE * EMELI BURKS * AWAITING SIGNATURE * MISTY HOWARD,KI [facility]
--- OUTSIDE RECORDS SUMMARY | 2024-05-08 09:39 | XMS_ITS ---
Author Name [facility] [place] [facility] [place] [facility] [place] Address [address] [place] [id number] Care Team Providers Care Pari Mutuel Ticket Cashier Name Role Phone RAJAN RIZO Primary Care [...] Name Patient's Relationship to Policy Aldana [facility] (WNR) MEDICARE ADVANTAGE [facility] (R) Feb 28, 2013 [id number] ALEXANDER MUNOZ PATIENT [facility] INSURANCE [facility] Feb 28, 2013 [id number] ALEXANDER MUNOZ PATIENT Selected Encounter This section includes the information on record at [place] for the Encounter. Date/Time Encounter Type Encounter Description Reason Provider Source July 29, 2023 08:30 AM OFF/OP EST JUNE X REQ PHY/QHP PRIMARY CARE/MEDICINE ICD-10-CM Z71.89 Other specified counseling JB MONTIEL Encounter Template Text not used by [place] Assessments - Encounter Diagnoses This section includes the primary and secondary diagnoses documented for the Encounter. Date/Time Primary/Secondary Diagnosis Diagnosis Name Provider Source July 29, 2023 08:56 AM PRIMARY Other specified counseling JB MONTIEL [place] [facility] [place] [facility] Plan of Treatment: Future Appointments (+ 6 months) and Future Tests (+/- 45 days) The Plan of Treatment section includes future care activities for the patient from all [place] [facility]. This section includes future appointments and future orders which are active, pending or scheduled. Future Appointments This section includes appointments that were scheduled to occur 6 months from the date of the Encounter, up to a maximum of 20 appointments. The data comes from all [place] treatment facilities. Appointment Date/Time Appointment Type Appointme nt Facility Name Aug 04, 2023 11:00 AM AMBULATORY - MEDICINE [place] [facility] [facility] [place] [facility] Sep 06, 2023 11:00 AM AMBULATORY - NONE [place] [facility] [place] [facility] Sep 21, 2023 07:30 AM AMBULATORY - NONE [place] [facility] [place] [facility] Oct 11, 2023 11:00 AM AMBULATORY - MEDICINE [place] [facility] [facility] Oct 25, 2023 09:45 AM AMBULATORY - NONE [place] [facility] [facility] Nov 22, 2023 09:00 AM AMBULATORY - REHAB MEDICIN E [place] [facility] [place] [facility] Dec 20, 2023 09:00 AM AMBULATORY - REHAB MEDICIN E [place] [facility] [facility] Dec 27, 2023 10:45 AM AMBULATORY - MEDICINE [place] [facility] [place] [facility] Vital Signs: All taken on the encounter date This section contains inpatient and outpatient Vital Signs collected on the date of the Encounter. Date/Time Temperature Pulse Blood Pressure Respiratory Rate SP02 Pain Height Weight Body Mass Index Source July 29, 2023 08:28 AM 97.4 57 162/77 18 98 185 28 [place] [facility] [place] Social History: Smoking Status (Most current) and Tobacco Use (All prior to encounter date) This section includes the most current, and the historical, smoking and tobacco- related health factors from the [place] facility where the Encounter took place. Current Smoking Status This section includes the most current smoking, or tobacco-related health factor, from the [place] facility where the Encounter took place. Date/Time Current Smoking Status Kumar gamez Dec 13, 2018 11:47 AM ORYX ADMIT TOBACCO SCREEN NO [facility] Tobacco Use History This section includes a history of the smoking, or tobacco-related health factors, that were collected on or before the date of the Encounter. The data comes from the [place] facility where the Encounter took place. Date/Time Smoking Status/Tobacco Use Comment F acility Aug 22, 2018 11:38 AM [place]-TOBACCO FORMER USER [facility] Aug 22, 2018 11:38 AM [place]-TOBACCO QUIT 15 YRS OR MORE [facility] Encounter Notes: All associated encounter notes This section contains the clinical notes associated to the Encounter. Date/Time Encounter Note(s) Provider Source July 29, 2023 08:49 AM PRIMARY CARE OUTPA TIENT NOTE: LOCAL TITLE: AMBULATORY/OUTPATIENT CARE NOTE STANDARD TITLE: PRIMARY CARE OUTPATIENT NOTE DATE OF NOTE: JULY 29, 2023@08:49 ENTRY DATE: JULY 29, 2023@08:49:10 AUTHOR: RICHY MONTIEL EXP COSIGNER: URGENCY: STATUS: COMPLETED AMBULATORY/OUTPATIENT CARE NOTE Has ADDENDA F: Cerumen in left ear D&A: presents to Sick call after leaving his dentist appt. Vet states, My has been putting ear drops in my left ear, she flushed it, but I think there is still some wax in there . [place]'s left ear was impacted with hard cerumen, states last week the drops were instilled and flushed with a syringe by his spouse. Right ear was flushed also, only a small amount of cerumen noted. TM bright and intact. Left ear was flushed for 20 minutes, unsuccessful with removing the cerumen. R: Pt instructed to continue with the drops for 5 days and on the 3rd day, call his pact team and schedule a RN visit for the was to be removed. Pt acknowledged understanding and tolerated the flushing without any incidence of dizziness or lightheadedness or pain. instructed to hold on wearing his hearing aid in left ear until flushed. Pt acknowledged understanding. Blood Pressure: 162/77 (07/29/2023 08:28)pt states takes him BP medication at night*. Patient Weight: 185 lb [83.91 kg] (07/29/2023 08:28) Pulse: 57 (07/29/2023 08:28) Respiration: 18 (07/29/2023 08:28) Temperature: 97.4 F [36.3 C] (07/29/2023 08:28) /gelacio/ RICHY MONTIEL Registered Nurse Signed: 07/29/2023 08:57 Receipt Acknowledged By: 07/29/2023 14:48 /preston VELIZ ADVANCED BILINGUAL TEACHER 07/29/2023 09:17 /gelacio/ KIARA GLOVER RN REGISTERED NURSE 07/29/2023 13:39 /gelacio/ RAJAN RIZO MD Primary Care Physician 07/29/2023 ADDENDUM STATUS: COMPLETED Will defer to PACT [facility] to please schedule a nursing visit for an ear lavage. /gelacio/ KIARA GLOVER RN REGISTERED NURSE Signed: 07/29/2023 09:17 07/29/2023 ADDENDUM STATUS: COMPLETED LM ON VM /gelacio/ OSMAN VELIZ ADVANCED BILINGUAL TEACHER Signed: 07/29/2023 11:50 07/29/2023 ADDENDUM STATUS: COMPLETED LM ON VM /gelacio/ OSMAN VELIZ ADVANCED BILINGUAL TEACHER Signed: 07/29/2023 13:54 [facility]ICHY MONTIEL [place] [facility]
--- OUTSIDE RECORDS SUMMARY | 2024-05-08 09:39 | XMS_ITS | Encounter Summary ---
Author Name [facility] [place] [facility] [place] Address [address] [place] [id number] Care Team Providers Care Furnace Clerk Name Role Phone RAJAN RIZO Primary Care [...] Name Patient's Relationship to Policy Aldana [facility] (WNR) MEDICARE ADVANTAGE [facility] (WNR) Feb 28, 2013 [id number] ALEXANDER MUNOZ PATIENT [facility] Feb 28, 2013 [id number] ALEXANDER MUNOZ PATIENT Selected Encounter This section includes the information on record at [place] for the Encounter. Date/Time Encounter Type Encounter Description Reason Pro vider Source Sep 23, 2023 01:39 PM Outpatient Encounter COMMUNITY CARE CONSULT IHE [...] 20 appointments. The data comes from all [place] treatment facilities. Appointment Date/Time Appointment Type Appointme nt Facility Name Oct 11, 2023 11:00 AM AMBULATORY [facility] [place] [facility] Oct 25, 2023 09:45 AM [facility] Nov 22, 2023 09:00 AM [facility] Dec 20, 2023 09:00 AM [facility] Dec 27, 2023 10:45 AM AMBULATORY - MEDICINE [facility] Social History: Smoking Status (Most current) and Tobacco Use (All prior to encounter date) This section includes the most current, and the historical, smoking and tobacco- related health factors from the [place] facility where the Encounter took place. Current Smoking Status This section includes the most current smoking, or tobacco-related health factor, from the [place] facility where the Encounter took place. Date/Time Current Smoking Status Comment Ellie ity Dec 13, 2018 11:47 AM ORYX ADMIT TOBACCO SCREEN NO [facility] Tobacco Use History This section includes a history of the smoking, or tobacco-related health factors, that were collected on or before the date of the Encounter. The data comes from the [place] facility where the Encounter took place. Date/Time Smoking Status/Tobacco Use Comment F acility Aug 22, 2018 11:38 AM [facility] Aug 22, 2018 11:38 AM VA-TOBACCO QUIT 15 YRS OR MORE [facility] Encounter Notes: All associated encounter notes This section contains the clinical notes associated to the Encounter. Date/Time Encounter Note(s) Provider Source Oct 06, 2023 12:35 PM ADDENDUM: LOCAL TITLE: Addendum STANDARD TITLE: ADDENDUM DATE OF NOTE: OCT 06, 2023@12:35:47 ENTRY DATE: OCT 06, 2023@12:35:48 AUTHOR: EMELI BURKS EXP COSIGNER: URGENCY: STATUS: COMPLETED Dr. Macrina Hdez is the patient's primary dental provider and the referring provider. Forwarding to Dr. Hdez. /gelacio/ EMELI BURKS DMD Staff Dentist Signed: 10/06/2023 12:37 Receipt Acknowledged By: 10/07/2023 13:43 /EARL Sheppard Dentist === --- Original Document --- 09/23/23 ADMINISTRATIVE NOTE: Brenda from [facility] called to state that will not be able to be scheduled until after 11/08/23 as he he informed her that he had to wear a heart monitor all last week. will require cardiac clearance after 11/08/23 before they can schedule the for surgery. /gelacio/ KI PHELPS ADVANCED FRICTION SAW OPERATOR Signed: 09/23/2023 13:41 Receipt Acknowledged By: 10/06/2023 12:33 /preston BURKS DMD Staff Dentist [facility] [place] [facility] Sep 23, 2023 01:39 PM ADMINISTRATIVE NOTE: LOCAL TITLE: ADMINISTRATIVE NOTE STANDARD TITLE: ADMINISTRATIVE NOTE DATE OF NOTE: SEP 23, 2023@13:39 ENTRY DATE: SEP 23, 2023@13:39:14 AUTHOR: KI PHELPS EXP COSIGNER: URGENCY: STATUS: COMPLETED ADMINISTRATIVE NOTE Has ADDENDA Brenda from [facility] called to state that will not be able to be scheduled until after 11/08/23 as he he informed her that he had to wear a heart monitor all last week. will require cardiac clearance after 11/08/23 before they can schedule the for surgery. /gelacio/ KI PHELPS ADVANCED FRICTION SAW OPERATOR Signed: 09/23/2023 13:41 Receipt Acknowledged By: 10/06/2023 12:33 /preston BURKS DMD Staff Dentist 10/06/2023 ADDENDUM STATUS: COMPLETED Dr. Macrina Hdez is the patient's primary dental provider and the referring provider. Forwarding to Dr. Hdez. /es/ EMELI BURKS DMD Staff Dentist Signed: 10/06/2023 12:37 Receipt Acknowledged By: 10/07/2023 13:43 /es/ MACRINA HDEZ DMD Staff Dentist 10/07/2023 ADDENDUM STATUS: COMPLETED Loss Prevention Specialist called pt and left message, that he would need to be cleared from his md do resident urgent care before dental surgery at [facility] can be booked. /es/ YELENA TEE ADVANCED HANDLE AND VENT MACHINE OPERATOR Signed: 10/07/2023 13:53 KI PHELPS CNTRL [facility]
--- OUTSIDE RECORDS SUMMARY | 2024-05-08 09:39 | XMS_ITS | Continuity of Care Document ---
Author Name [facility] Organization [facility] Care Team Providers Care Spider Assembler Name Role Phone [facility] Unavailable Unavailable Problems Combined list of problems from Department of Defense and Veterans Affairs facilities. It does not include entries that were removed or entered in error. Problem Status Onset Date Problem Type Date of Resolution Comments Source Adjustment disorder with mixed emotional features Active Condition [place] Pollard's esophagus Active Condition Oct 12, 2016 Entered By: RAJAN RIZO Comment: 12/2015: screening upper endoscopy Dr Sherwood 2021 Entered By: REBECCA MORA Comment: 01/12/2021: Upper Endoscoy with biopsy [facility]. > 1cm of Pollard's esophagus, several benign gastric polyops, [place] Benign prostatic hypertrophy Active Condition Dec 13, 2018 Entered By: JOVITA KAUFFMAN Comment: Non[facility] Urologist- Dr. Taran Andrews, [facility] Bilateral hearing loss [facility] [place] [facility] Cataract Active Condition Dec 13 Entered By: JOVITA KAUFFMAN Comment: Left eye- NonVA Dr. Rajinder Shepard, [facility] [place] [facility] Colonoscopy Screening Active Condition Oct 12, 2016 Entered By: RAJAN RIZO Comment: Diverticulosis & Both parents have Colon [place]- Dr Sherwood 2021 Entered By: REBECCA MORA Comment: 01/12/2021: [facility], Terminal ileum normal, mild sigmoid diverticulosis, 2 less than 5 mm polyops in rectumOct 12, 2016 Entered By: RAJAN RIZO Comment: 12/2015: +polyp & pandiverticulosis - repeat 5 yrs (2020) Dr Brian Brand [place] History of Basal Cell Carcinoma of skin Active Condition Dec 13, 2018 Entered By: JOVITA KAUFFMAN Comment: Dermatology- NonVA [facility], Brenda Meng PA-C [place] Hyperlipidemia Active Condition [place] Hypertension Active Condition [facility] LD Insomnia Active Condition [facility] [place] [facility] Obstructive sleep apnea Active Condition Oct 05, 2018 Entered By: RAJAN RIZO Comment: Dxed 07/27/18 - MILD severity [facility] [place] [facility] Posttraumatic stress disorder Active Condition [facility] Primary Care Physician Active Condition Oct 12, 2017 Entered By: RAJAN RIZO Comment: Dr. Ree Larkin [phone] [address] [facility] [place] [facility] Prostate cancer Active Condition Apr 09, 2022 Entered By: RAJAN RIZO Comment: Dr[facility] Farley [facility] [place] [facility] Seasonal allergic rhinitis Active Condition Dec 13, 2018 Entered By: JOVITA KAUFFMAN Comment: loratadine prn OTC [facility] [place] [facility] Tinnitus Active Condition Oct 12 17 Entered By: RAJAN RIZO Comment: 09/03/15 CT Head W&WO contrast: age related changes, otherwise normal [place] Diagnosis: ICD-10-CM Z46.1 Encounter for fitting and adjustment of hearing aid Active Diagnosis [facility] [place] [facility] Diagnosis: ICD-10-CM H90.3 Sensorineural hearing loss, bilateral Active Diagnosis [facility] [place] [facility] Diagnosis: ICD-10-CM K03.6 Deposits [accretions] on teeth Active Diagnosis [facility] [place] [facility] Diagnosis: ICD-10-CM I10 Essential (primary) hypertension Active Diagnosis [place] Diagnosis: ICD-10-CM K08.9 Disorder of teeth and supporting structures, unspecified Active Diagnosis [facility] [place] [facility] Diagnosis: ICD-10-CM H61.22 Impacted cerumen, left ear Active Diagnosis [place] Diagnosis: ICD-10-CM Z71.89 Other specified counseling Active Diagnosis [facility] [place] [facility] Diagnosis: ICD-10-CM S80.01XA Contusion of right knee, initial encounter Active Diagnosis [facility] [place] [facility] Medications Combined list of outpatient medications from Department of Defense and Veterans Affairs facilities.Medications provided include 1) outpatient medications from the last 15 months, and 2) patient-reported medications. Medication Details Route Status Patient Instructions Prescription Expires Prescription Number Last Dispense Date Ordering Provider Order Date Order Qty Source AMOXICILLIN TRIHYDRATE 500MG CAP TAKE ONE CAPSULE BY MOUTH EVERY 8 HOURS ORAL 10/06/2023 [id number] MACRINA HDEZ 2023 [facility] ATORVASTATI N CA 40MG TAB TAKE ONE TABLET BY MOUTH AT BEDTIME FOR HIGH CHOLESTE ROL ORAL ACTIVE 10/11/2024 [id number] 5 SOL RIZO SA 2023 90 [place] ATORVASTATI N CA 40MG TAB TAKE TWO TABLETS BY MOUTH AT BEDTIME ORAL DISCONT INUED (EDIT) 12/22/2023 [id number] 4 SOL RIZO SA 2022 180 [place] IBUPROFEN 600MG TAB TAKE ONE TABLET BY MOUTH EVERY 6 HOURS NEEDED FOR PAIN TAKE WITH FOOD ORAL 10/06/2023 [id number] 4 MACRINA HDEZ 2023 28 [facility] LISINOPRIL 20MG TAB TAKE ONE TABLET BY MOUTH ONCE DAILY TO CONTROL BLOOD PRESSURE ORAL ACTIVE 12/25/2024 [id number] 5 SOL RIZO SA 2023 90 [place] LISINOPRIL 20MG TAB TAKE ONE TABLET BY MOUTH ONCE DAILY TO CONTROL BLOOD PRESSURE ORAL DISCONT INUED (EDIT) 06/20/2024 [id number] 4 SOL RIZO SA 2023 90 [place] LISINOPRIL 20MG TAB TAKE ONE TABLET BY MOUTH ONCE DAILY TO CONTROL BLOOD PRESSURE ORAL DISCONT INUED 10/22/2023 [id number] 4 SOL RIZO SA 2022 90 [place] LISINOPRIL 20MG TAB TAKE ONE TABLET BY MOUTH ONCE DAILY TO CONTROL BLOOD PRESSURE ORAL DISCONT INUED (EDIT) 09/17/2023 [id number] 4 SOL RIZO SA 2023 90 [place] OMEPRAZOLE 20MG CAP,EC TAKE ONE CAPSULE BY MOUTH TWICE DAILY FOR GASTROES OPHAGEAL REFLUX DISEASE ORAL ACTIVE 12/25/2024 [id number] 4 DARRIUSSOL JAY 2023 180 [place] OMEPRAZOLE 20MG CAP,EC TAKE ONE CAPSULE BY MOUTH TWICE DAILY ORAL DISCONT INUED (EDIT) 06/20/2024 [id number] 4 DARRIUSSOL THAO PIERRE 2023 180 [place] OMEPRAZOLE 20MG CAP,EC TAKE ONE CAPSULE BY MOUTH TWICE DAILY FOR GASTROES OPHAGEAL REFLUX DISEASE ORAL DISCONT INUED 10/22/2023 [id number] 4 DARRIUSSOL THAO PIERRE 2022 180 [place] OMEPRAZOLE 20MG CAP,EC TAKE ONE CAPSULE BY MOUTH TWICE DAILY FOR GASTROES OPHAGEAL REFLUX DISEASE ORAL DISCONT INUED (EDIT) 09/17/2023 [id number] 4 SOL RIZO SA PIERRE 2023 180 [place] PSYLLIUM PWDR,ORAL TAKE 1 TEASPOON FUL BY MOUTH ONCE DAILY ORAL ACTIVE STONEY SALCEDO MD [facility] [place] [facility] [facility] Allergies, Adverse Reactions, Alerts Combined list of allergies from Department of Defense and Veterans Affairs facilities. It does not include entries that were removed or entered in error. Substance Category Reaction Severity Reaction type Status Date Reported Comments Source DEMEROL Propensity to adverse reactions to drug (finding) Nausea and vomiting active [facility] [place] [facility] Immunizations Combined list of available immunizations from the Department of Defense and Veterans Affairs facilities. Immunization Series Date Given Administered By Site Reaction Lot Number CVX Code Drug Food Or Baggage Handling [place] Status Comments Source INFLUENZA, UNSPECIFIED FORMULATION 2023 88 complet ed [facility] [place] [facility] INFLUENZA VACCINE, QUADRIVALENT, ADJUVANTED 2021 205 complet ed [facility] [place] [facility] ZOSTER RECOMBINANT 1 2020 187 complet ed [place] 2020 115 complet [facility] [place] [facility] COVID-19 (PFIZER), MRNA, LNP-S, PF, 30 MCG/0.3 ML DOSE 2 2020 208 complet ed [facility] COVID-19 (PFIZER), MRNA, LNP-S, PF, 30 MCG/0.3 ML DOSE 1 2020 208 complet ed [facility] INFLUENZA, INJECTABLE, QUADRIVALENT, PRESERVATIVE FREE 2018 150 complet ed Site: Left Deltoid [place] INFLUENZA, SEASONAL, INJECTABLE 2017 141 complet ed NON VA [facility] INFLUENZA, SEASONAL, INJECTABLE 2016 141 complet ed Site: Left Deltoid [place] FLU,3 YRS (HISTORICAL) 2015 88 complet ed Site: Left Deltoid [place] FLU,3 YRS (HISTORICAL) 2014 88 complet ed Site: Left Deltoid [place] PNEUMOCOCCAL CONJUGATE PCV 13 2014 133 complet ed [id number] [facility] FLU,3 YRS (HISTORICAL) 2013 88 complet ed Site: Left Deltoid [place] FLU,3 YRS (HISTORICAL) 2012 88 complet ed [facility] PNEUMOCOCCAL POLYSACCHARID E [id number] 2012 33 complet ed [id number] [facility] FLU,3 YRS (HISTORICAL) 2011 88 complet ed [facility] DTAP, UNSPECIFIED FORMULATION 2010 107 complet ed bmp e longmeado w [facility] ZOSTER (HISTORICAL) 2010 121 complet ed bmp e longmeado w [facility] TD(ADULT) UNSPECIFIED FORMULATION 2010 139 complet ed [facility] Results Combined list of recent chemistry, hematology and other laboratory results from Department of Defense and Veterans Affairs, ranging from 15 months to all on record, depending upon the facility. Order Name Results Value Reference Range Date Interpretation Specimen Comments Source TSH THYROTROPIN [UNITS/VOLU ME] IN SERUM OR PLASMA 0.77 u[IU]/ mL 0.35 - 5.00 10/05 Specimen Type: SERUM No comment entered. Ordering Provider: RAJAN RIZO Report Released Date/Time: Oct 08, 2021 05:46 AM Reporting Lab: [address] [address] Performing Lab: [address] [address] [facility] HEMOGLOBI N A1C PANEL HEMOGLOBIN A1C/HEMOGLO BIN.TOTAL IN BLOOD BY HPLC 5.2 4.0 - 5.6 10/05 Specimen Type: BLOOD Comment: Values obtained from A1C measurement s can vary. For atypical A1C assays, a reported value of 7.0 could actually be between 6.72 and 7.28 if measured by a reference method. A reported value of 9.0 could actually be between 8.73 and 9.27. Ref: http://www. ngsp.org/[place] Pdata.asp Ordering Provider: RAJAN RIZO Report Released Date/Time: Oct 08, 2021 05:46 AM Reporting Lab: [address] [address] Performing Lab: [address] [address] [facility] LIPID PANEL FASTING CHOLESTEROL [MASS/VOLUM E] IN SERUM OR PLASMA 196 mg/dL 10/05 Specimen Type: SERUM No comment entered. Ordering Provider: RAJAN RIZO Report Released Date/Time: Oct 08, 2021 05:46 AM Reporting Lab: [address] [address] Performing Lab: [address] [address] [facility] LIPID PANEL FASTING TRIGLYCERID E [MASS/VOLUM E] IN SERUM OR PLASMA 70 mg/dL 0 - 150 10/05 Specimen Type: SERUM No comment entered. Ordering Provider: RAJAN RIZO Report Released Date/Time: Oct 08, 2021 05:46 AM Reporting Lab: [address] [place] [address] Performing Lab: [facility] [place] [facility] [address] [facility] [address] [facility] [place] [facility] LIPID PANEL FASTING CHOLESTEROL IN LDL [MASS/VOLUM E] IN SERUM OR PLASMA BY CALCULATION 110 mg/dL 0 - 129 10/05 Specimen Type: SERUM No comment entered. Ordering Provider: RAJAN RIZO Report Released Date/Time: Oct 08, 2021 05:46 AM Reporting Lab: [facility] [place] [facility] [address] [facility] [address] Performing Lab: [facility] [place] [facility] [address] [facility] [address] [facility] [place] [facility] LIPID PANEL FASTING CHOLESTEROL .TOTAL/CHOL ESTEROL IN HDL [MASS RATIO] IN SERUM OR PLASMA 2.7 10/05 Specimen Type: SERUM No comment entered. Ordering Provider: RAJAN RIZO Report Released Date/Time: Oct 08, 2021 05:46 AM Reporting Lab: [facility] [place] [facility] [address] [facility] [address] Performing Lab: [facility] [place] [facility] [address] [facility] [address] [facility] [place] [facility] LIPID PANEL FASTING CHOLESTEROL IN HDL [MASS/VOLUM E] IN SERUM OR PLASMA 72 mg/dL 40 - 60 10/05 H Specimen Type: SERUM No comment entered. Ordering Provider: RAJAN RIZO Report Released Date/Time: Oct 08, 2021 05:46 AM Reporting Lab: [facility] [place] [facility] [address] [facility] [address] Performing Lab: [facility] [place] [facility] [address] [facility] [address] [facility] [place] [facility] LIVER FUNCTION PROTEIN [MASS/VOLUM E] IN SERUM OR PLASMA 6.6 g/dL 6.0 - 8.3 10/05 Specimen Type: SERUM No comment entered. Ordering Provider: RAJAN RIZO Report Released Date/Time: Oct 08, 2021 05:46 AM Reporting Lab: [facility] [place] [facility] [address] [facility] [address] Performing Lab: [facility] [place] [facility] [address] [facility] [address] [facility] [place] [facility] LIVER FUNCTION ALBUMIN [MASS/VOLUM E] IN SERUM OR PLASMA 4.0 g/dL 3.5 - 5.0 10/05 Specimen Type: SERUM No comment entered. Ordering Provider: RAJAN RIZO Report Released Date/Time: Oct 08, 2021 05:46 AM Reporting Lab: [facility] [place] [facility] [address] [facility] [address] Performing Lab: [facility] [place] [facility] [address] [facility] [address] [facility] [place] [facility] LIVER FUNCTION ALKALINE PHOSPHATASE [ENZYMATIC ACTIVITY/VO LUME] IN SERUM OR PLASMA 75 U/L 40 - 150 10/05 Specimen Type: SERUM No comment entered. Ordering Provider: RAJAN RIZO Report Released Date/Time: Oct 08, 2021 05:46 AM Reporting Lab: [facility] [place] [facility] [address] [facility] [address] Performing Lab: [facility] [place] [facility] [address] [facility] [address] [facility] [place] [facility] LIVER FUNCTION ASPARTATE AMINOTRANSF ERASE [ENZYMATIC ACTIVITY/VO LUME] IN SERUM OR PLASMA 29 U/L 5 - 34 10/05 Specimen Type: SERUM No comment entered. Ordering Provider: RAJAN RZIO Report Released Date/Time: Oct 08, 2021 05:46 AM Reporting Lab: [facility] [place] [facility] [address] [facility] [address] Performing Lab: [facility] [place] [facility] [address] [facility] [address] [facility] [place] [facility] LIVER FUNCTION ALANINE AMINOTRANSF ERASE [ENZYMATIC ACTIVITY/VO LUME] IN SERUM OR PLASMA 23 U/L 10/05 Specimen Type: SERUM No comment entered. Ordering Provider: RAJAN RIZO Report Released Date/Time: Oct 08, 2021 05:46 AM Reporting Lab: [facility] [place] [facility] [address] [facility] [address] Performing Lab: [facility] [place] [facility] [address] [facility] [address] [facility] [place] [facility] LIVER FUNCTION BILIRUBIN.T OTAL [MASS/VOLUM E] IN SERUM OR PLASMA 0.7 mg/dL 0.2 - 1.2 10/05 Specimen Type: SERUM No comment entered. Ordering Provider: RAJAN RIZO Report Released Date/Time: Oct 08, 2021 05:46 AM Reporting Lab: [facility] [place] [facility] [address] [facility] [address] Performing Lab: [facility] [place] [address] [address] [facility] [place] [facility] BASIC METABOLIC PANEL (fasting) UREA NITROGEN [MASS/VOLUM E] IN SERUM OR PLASMA 18 mg/dL 7 - 25 10/05 Specimen Type: SERUM No comment entered. Ordering Provider: RAJAN RIZO Report Released Date/Time: Oct 08, 2021 05:46 AM Reporting Lab: [facility] [place] [facility] [address] [facility] [address] Performing Lab: [facility] [place] [address] [address] [facility] [place] [facility] BASIC METABOLIC PANEL (fasting) GLUCOSE [MASS/VOLUM E] IN SERUM OR PLASMA 93 mg/dL 65 - 100 10/05 Specimen Type: SERUM No comment entered. Ordering Provider: RAJAN RIZO Report Released Date/Time: Oct 08, 2021 05:46 AM Reporting Lab: [facility] [place] [facility] [address] [facility] [address] Performing Lab: [facility] [place] [address] [address] [facility] [place] [facility] BASIC METABOLIC PANEL (fasting) SODIUM [MOLES/VOLU ME] IN SERUM OR PLASMA 142 mmol/L 135 - 145 10/05 Specimen Type: SERUM No comment entered. Ordering Provider: RAJAN RIZO Report Released Date/Time: Oct 08, 2021 05:46 AM Reporting Lab: [facility] [place] [facility] [address] [facility] [address] Performing Lab: [facility] [place] [facility] [address] [facility] [address] [facility] [place] [facility] BASIC METABOLIC PANEL (fasting) POTASSIUM [MOLES/VOLU ME] IN SERUM OR PLASMA 5.4 mmol/L 3.5 - 5.0 10/05 H Specimen Type: SERUM No comment entered. Ordering Provider: RAJAN RIZO Report Released Date/Time: Oct 08, 2021 05:46 AM Reporting Lab: [facility] [place] [facility] [address] [facility] [address] Performing Lab: [facility] [place] [address] [address] [facility] [place] [facility] BASIC METABOLIC PANEL (fasting) CHLORIDE [MOLES/VOLU ME] IN SERUM OR PLASMA 106 mmol/L 100 - 110 10/05 Specimen Type: SERUM No comment entered. Ordering Provider: RAJAN RIZO Report Released Date/Time: Oct 08, 2021 05:46 AM Reporting Lab: [facility] [place] [facility] [address] [facility] [address] Performing Lab: [facility] [place] [facility] [address] [facility] [address] [facility] [place] [facility] BASIC METABOLIC PANEL (fasting) CARBON DIOXIDE, TOTAL [MOLES/VOLU ME] IN SERUM OR PLASMA 29 meq/L 20 - 30 10/05 Specimen Type: SERUM No comment entered. Ordering Provider: RAJAN RIZO Report Released Date/Time: Oct 08, 2021 05:46 AM Reporting Lab: [facility] [place] [facility] [address] [facility] [address] Performing Lab: [facility] [place] [address] [address] [facility] [place] [facility] BASIC METABOLIC PANEL (fasting) CREATININE [MASS/VOLUM E] IN SERUM OR PLASMA 0.90 mg/dL 0.50 - 1.40 10/05 Specimen Type: SERUM No comment entered. Ordering Provider: RAJAN RIZO Report Released Date/Time: Oct 08, 2021 05:46 AM Reporting Lab: [facility] [address] [address] Performing Lab: [facility]ITAL[facility]TRN [facility] [address] [facility] BASIC METABOLIC PANEL (fasting) GLOMERULAR FILTRATION RATE/1.73 SQ M.PREDICTED [VOLUME RATE/AREA] IN SERUM, PLASMA OR BLOOD BY CREATININE- BASED FORMULA (CKD-EPI) 89 mL/min 60 10/05 Specimen Type: SERUM No comment entered. Ordering Provider: RAJAN RIZO Report Released Date/Time: Oct 08, 2021 05:46 AM Reporting Lab: [facility]ITALRC[facility]ENTERTRN [facility] [address] Performing Lab: [facility] TRN [facility] [address] [facility] CBC AND DIFF (AUTO) LEUKOCYTES [#/VOLUME] IN BLOOD BY AUTOMATED COUNT 5.95 10*3/u L 4.50 - 11.00 10/05 Specimen Type: BLOOD No comment entered. Ordering Provider: RAJAN RIZO Report Released Date/Time: Oct 08, 2021 05:46 AM Reporting Lab: [facility] TRN [facility] [address] Performing Lab: [facility] TRN [facility] [address] [facility] CBC AND DIFF (AUTO) ERYTHROCYTE S [#/VOLUME] IN BLOOD BY AUTOMATED COUNT 4.97 10*6/u L 4.23 - 5.66 10/05 Specimen Type: BLOOD No comment entered. Ordering Provider: RAJAN RIZO Report Released Date/Time: Oct 08, 2021 05:46 AM Reporting Lab: [facility] [place] [facility] [address] [facility] [address] Performing Lab: [facility] [place] [facility] [address] [facility] [address] [facility] [place] [facility] CBC AND DIFF (AUTO) HEMOGLOBIN [MASS/VOLUM E] IN BLOOD 14.4 g/dL 12.8 - 17 10/05 Specimen Type: BLOOD No comment entered. Ordering Provider: RAJAN RIZO Report Released Date/Time: Oct 08, 2021 05:46 AM Reporting Lab: [facility] [place] [facility] [address] [facility] [address] Performing Lab: [facility] [place] [facility] [address] [facility] [address] [facility] [place] [facility] CBC AND DIFF (AUTO) HEMATOCRIT [VOLUME FRACTION] OF BLOOD BY AUTOMATED COUNT 43.3 39.2 - 50.4 10/05 Specimen Type: BLOOD No comment entered. Ordering Provider: RAJAN RIZO Report Released Date/Time: Oct 08, 2021 05:46 AM Reporting Lab: [facility] [place] [facility] [address] [facility] [address] Performing Lab: [facility] [place] [facility] [address] [facility] [address] [facility] [place] [facility] CBC AND DIFF (AUTO) MCV [ENTITIC VOLUME] BY AUTOMATED COUNT 87.1 fL 82 - 99 10/05 Specimen Type: BLOOD No comment entered. Ordering Provider: RAJAN RIZO Report Released Date/Time: Oct 08, 2021 05:46 AM Reporting Lab: [facility] [place] [facility] [address] [facility] [address] Performing Lab: [facility] [place] [facility] [address] [facility] [address] [facility] [place] [facility] CBC AND DIFF (AUTO) MCHC [MASS/VOLUM E] BY AUTOMATED COUNT 33.3 g/dL 30.8 - 35.1 10/05 Specimen Type: BLOOD No comment entered. Ordering Provider: RAJAN RIZO Report Released Date/Time: Oct 08, 2021 05:46 AM Reporting Lab: [facility] [place] [facility] [address] [facility] [address] Performing Lab: [facility] [place] [facility] [address] [facility] [address] [facility] [place] [facility] CBC AND DIFF (AUTO) PLATELETS [#/VOLUME] IN BLOOD BY AUTOMATED COUNT 169 10*3/u L 140 - 360 10/05 Specimen Type: BLOOD No comment entered. Ordering Provider: RAJAN RIZO Report Released Date/Time: Oct 08, 2021 05:46 AM Reporting Lab: [facility] [place] [facility] [address] [facility] [address] Performing Lab: [facility] [address] [facility] [address] [facility] CBC AND DIFF (AUTO) ERYTHROCYTE DISTRIBUTIO N WIDTH [RATIO] BY AUTOMATED COUNT 12.4 12.0 - 16.0 10/05 Specimen Type: BLOOD No comment entered. Ordering Provider: RAJAN RIZO Report Released Date/Time: Oct 08, 2021 05:46 AM Reporting Lab: [facility] [address] [facility] [address] Performing Lab: [facility] [address] [facility] [address] [facility] CBC AND DIFF (AUTO) MONOCYTES [#/VOLUME] IN BLOOD BY AUTOMATED COUNT 0.46 10*3/u L 0.30 - 1.10 10/05 Specimen Type: BLOOD No comment entered. Ordering Provider: RAJAN RIZO Report Released Date/Time: Oct 08, 2021 05:46 AM Reporting Lab: [facility] [address] [facility] [address] Performing Lab: [facility] [address] [facility] [address] [facility] CBC AND DIFF (AUTO) MCH [ENTITIC MASS] BY AUTOMATED COUNT 29.0 pg 26.2 - 32.6 10/05 Specimen Type: BLOOD No comment entered. Ordering Provider: RAJAN RIZO Report Released Date/Time: Oct 08, 2021 05:46 AM Reporting Lab: [facility] [address] [facility] [address] Performing Lab: [facility] [address] [facility] [address] [facility] CBC AND DIFF (AUTO) NEUTROPHILS /100 LEUKOCYTES IN BLOOD BY AUTOMATED COUNT 69.1 43.7 - 75.8 10/05 Specimen Type: BLOOD No comment entered. Ordering Provider: RAJAN RIZO Report Released Date/Time: Oct 08, 2021 05:46 AM Reporting Lab: [facility] [address] [facility] [address] Performing Lab: [facility] [address] [place] [address] [facility] CBC AND DIFF (AUTO) LYMPHOCYTES /100 LEUKOCYTES IN BLOOD BY AUTOMATED COUNT 20.3 14.0 - 42.3 10/05 Specimen Type: BLOOD No comment entered. Ordering Provider: RAJAN RIZO Report Released Date/Time: Oct 08, 2021 05:46 AM Reporting Lab: [facility] [address] [address] Performing Lab: [facility] [address] [facility] [address] [facility] CBC AND DIFF (AUTO) MONOCYTES/1 00 LEUKOCYTES IN BLOOD BY AUTOMATED COUNT 7.7 5.1 - 13.7 10/05 Specimen Type: BLOOD No comment entered. Ordering Provider: RAJAN RIZO Report Released Date/Time: Oct 08, 2021 05:46 AM Reporting Lab: [facility] [address] [facility] [address] Performing Lab: [facility] [address] [place] [address] [facility] CBC AND DIFF (AUTO) EOSINOPHILS /100 LEUKOCYTES IN BLOOD BY AUTOMATED COUNT 1.5 0.4 - 6.8 10/05 Specimen Type: BLOOD No comment entered. Ordering Provider: RAJAN RIZO Report Released Date/Time: Oct 08, 2021 05:46 AM Reporting Lab: [facility] [address] [address] Performing Lab: [facility] [address] [address] [facility] CBC AND DIFF (AUTO) BASOPHILS/1 00 LEUKOCYTES IN BLOOD BY AUTOMATED COUNT 1.2 0.1 - 2.0 10/05 Specimen Type: BLOOD No comment entered. Ordering Provider: RAJAN RIZO Report Released Date/Time: Oct 08, 2021 05:46 AM Reporting Lab: [facility] [address] [address] Performing Lab: [facility] [address] [address] [facility] CBC AND DIFF (AUTO) NEUTROPHILS [#/VOLUME] IN BLOOD BY AUTOMATED COUNT 4.11 10*3/u L 2.20 - 7.60 10/05 Specimen Type: BLOOD No comment entered. Ordering Provider: RAJAN RIZO Report Released Date/Time: Oct 08, 2021 05:46 AM Reporting Lab: [facility] [address] [address] Performing Lab: [facility] [address] [address] [facility] CBC AND DIFF (AUTO) LYMPHOCYTES [#/VOLUME] IN BLOOD BY AUTOMATED COUNT 1.21 10*3/u L 1.00 - 3.20 10/05 Specimen Type: BLOOD No comment entered. Ordering Provider: RAJAN RIZO Report Released Date/Time: Oct 08, 2021 05:46 AM Reporting Lab: [facility] [address] [address] Performing Lab: [facility] [address] [facility] [address] [facility] CBC AND DIFF (AUTO) EOSINOPHILS [#/VOLUME] IN BLOOD BY AUTOMATED COUNT 0.09 10*3/u L 0.03 - 0.44 10/05 Specimen Type: BLOOD No comment entered. Ordering Provider: RAJAN RIZO Report Released Date/Time: Oct 08, 2021 05:46 AM Reporting Lab: [facility] [facility] [address] [facility] [address] Performing Lab: [facility] [address] [facility] [address] [facility] CBC AND DIFF (AUTO) BASOPHILS [#/VOLUME] IN BLOOD BY AUTOMATED COUNT 0.07 10*3/u L 0.01 - 0.13 10/05 Specimen Type: BLOOD No comment entered. Ordering Provider: RAJAN RIZO Report Released Date/Time: Oct 08, 2021 05:46 AM Reporting Lab: [facility] [facility] [address] [facility] [address] Performing Lab: [facility] [facility] [address] [facility] [address] [facility] CBC AND DIFF (AUTO) IMMATURE GRANULOCYTE S/100 LEUKOCYTES IN BLOOD BY AUTOMATED COUNT 0.2 0.0 - 0.7 10/05 Specimen Type: BLOOD No comment entered. Ordering Provider: RAJAN RIZO Report Released Date/Time: Oct 08, 2021 05:46 AM Reporting Lab: [facility] [facility] [address] [facility] [address] Performing Lab: [facility] [facility] [address] [facility] [address] [facility] CBC AND DIFF (AUTO) IMMATURE GRANULOCYTE S [#/VOLUME] IN BLOOD 0.01 10*3/u L 0.00 - 0.06 10/05 Specimen Type: BLOOD No comment entered. Ordering Provider: RAJAN RIZO Report Released Date/Time: Oct 08, 2021 05:46 AM Reporting Lab: [facility] [address] [facility] [address] Performing Lab: [facility] [address] [facility] [address] [facility] Vital Signs Combined list of inpatient and outpatient Vital Signs from Department of Defense and Veterans Affairs, ranging from 12 months to all on record, depending upon the facility. Vital Sign Value Date Comments Source SYSTOLIC BLOOD PRESSURE 153 10/11/19 24 11:05:07 [facility] DIASTOLIC BLOOD PRESSURE 79 024 11:05:07 [facility] PULSE OXIMETRY 99 10/11/2023 11:05:07 [facility] WEIGHT 183.8 10/11/2023 11:05:07 [facility] BMI 28 kg/m2 10/11/2023 11:05:07 [facility] PAIN 0 10/11/2023 11:05:07 [facility] HEIGHT 68 10/11/2023 11:05:07 [facility] TEMPERATURE 98 10/11/2023 11:05:07 [facility] PULSE 68 10/11/2023 11:05:07 [facility] RESPIRATION 16 10/11/2023 11:05:07 [facility] SYSTOLIC BLOOD PRESSURE 162 07/29/19 24 08:28:11 [facility] DIASTOLIC BLOOD PRESSURE 77 024 08:28:11 [facility] PULSE OXIMETRY 98 07/29/2023 08:28:11 [facility] WEIGHT 185 07/29/2023 08:28:11 [facility] BMI 28 kg/m2 07/29/2023 08:28:11 [facility] TEMPERATURE 97.4 07/29/2023 08:28:11 [facility] PULSE 57 07/29/2023 08:28:11 [facility] RESPIRATION 18 07/29/2023 08:28:11 [facility] Encounters Combined list of: 1) Encounters from Department of Veterans Affairs facilities going backup to the last 18 months, not all VA inpatient encounters are included; 2) Encounters from the Department of [facility] facilities going backup to 280 months. Location Location Details Encounter Type Encounter Number Reason For Visit Attending Provider ADM Date DC Date Status Disposition Source [facility] Outpatient Encounter [id number] 11/22 [facility] Encounter [id number] 11/30 [facility] Outpatient Encounter [id number] 12/21 [facility] Out[facility] Encounter [id number] 02/28 [facility] Out[facility] Encounter [id number] 03/08 [facility] Out[facility] Encounter [id number] 03/17 [facility] Out[facility] Encounter [id number] 04/21 [facility] CASE MGMT-ORAL HEALTH LIT [id number] Diagnos is: ICD-10- CM K03.6 Deposit s [accret ions] on teeth LEE,JAMIE DAVILA K 04/22 [facility] LIMIT ORAL EVAL PROBLM FOCUS [id number] Diagnos is: ICD-10- CM K08.9 Disorde r of teeth and support ing structu res, unspeci MACRINA Randhawa 04/22 [facility] OFF/OP EST MAY X REQ PHY/QHP [id number] Diagnos is: ICD-10- CM Z71.89 Other specifi ed dependency counselor Carlos Camacho 04/22 [facility] OFFICE O/P EST LOW 20 MIN [id number] Diagnos is: ICD-10- CM S80.01X A Contusi on of right knee, initial encount LIAN Andres 04/22 [facility] Outpatient Encounter [id number] 04/22 [facility] Out[facility] Encounter [id number] 06/06 [facility] Out[facility] Encounter [id number] 06/15 [facility] Outpatient Encounter [id number] 06/19 [facility] Outpatient Encounter [id number] 07/04 [facility] Outpatient Encounter [id number] 07/04 [facility] Outpatient Encounter [id number] 07/27 [facility] IMPLANT PROCEDURE [id number] Diagnos is: ICD-10- CM K08.9 Disorde r of teeth and support ing structu res, unspeci MACRINA Randhawa 07/28 [facility] OFF/OP EST MAY X REQ PHY/QHP [id number] Diagnos is: ICD-10- CM Z71.89 Other specifi ed dependency counselor Carlos Camacho 07/28 [facility] [place] OFF/OP EST MAY X REQ PHY/QHP [id number] Diagnos is: ICD-10- CM H61.22 Impacte d cerumen , left ear FALES,LUIS OLAS 08/03 [place] [facility] Outpatient Encounter [id number] 08/03 [facility] LIMITED OCCLUSAL ADJUSTMENT [id number] Diagnos is: ICD-10- CM K08.9 Disorde r of teeth and support ing structu res, unspeci MACRINA Randhawa 09/05 [facility] Out[facility] Encounter [id number] 09/19 [facility] Out[facility] Encounter [id number]/20 [facility] ABUT SUPPORT CROWN PORC HNOB [id number] Diagnos is: ICD-10- CM K08.9 Disorde r of teeth and support ing structu res, unspeci fied MACRINA HDEZ 09/20 [facility] Out[facility] Encounter [id number] 09/22 [facility] Outpatient Encounter [id number] 1.10/10 [facility] [place] OFFICE O/P EST LOW 20 MIN [id number] Diagnos is: ICD-10- CM I10 Essenti al (primar y) hyperte nsion EULALIA RIZO 10/10 [place] [facility] Out[facility] Encounter [id number] 1.10/23 [facility] CASE MGMT-ORAL HEALTH LIT [id number] Diagnos is: ICD-10- CM K03.6 Deposit s [accret ions] on teeth LEE,JAMIE LOLA K 10/24 [facility] Out[facility] Encounter [id number] 10/24 [facility] HEARING AID FITTING/CH ECKING [id number] Diagnos is: ICD-10- CM H90.3 Sensori neural hearing loss, bilater al TERESA SZYMANSKI 11/21 [facility] Outpatient Encounter [id number] 11/30 [facility] HEARING SERVICE [id number] Diagnos is: ICD-10- CM Z46.1 Encount er for fitting and adjustm ent of hearing aid SENIOR,CHYNA OLE L 12/19 [facility] Outpatient Encounter [id number] 12/19 [facility] Outpatient Encounter [id number] 12/22 [facility] Outpatient Encounter [id number] 12/26 [facility] Outpatient Encounter [id number] 04/26 [facility] Social History Combined list of available smoking, tobacco, and other social history from Department of Defense and Veterans Affairs facilities. Social History Type Response Date Comment Source Tobacco smoking status [facility] VA-TOBACCO FORMER USER 10/11/2023 [place] History of tobacco use UT-TOBACCO QUIT 15 YRS OR MORE 10/11/2023 [place] History of tobacco use UT-TOBACCO NEVER USED 10/11/2022 [place] History of tobacco use UT-TOBACCO NEVER USED 10/08/2021 [place] History of tobacco use UT-TOBACCO NEVER USED 10/08/2020 [place] History of tobacco use UT-TOBACCO QUIT 15 YRS OR MORE 10/30/2019 [place] History of tobacco use ORYX ADMIT TOBACCO SCREEN NO 12/13/2018 [facility] [place] [facility] History of tobacco use VA-TOBACCO FORMER USER 08/22/2018 [facility] [place] [facility] History of tobacco use QUIT TOBACCO USE > 7 YEARS AGO 10/12/2017 Quit 50 years ago [place] History of tobacco use QUIT TOBACCO USE 1-7 YEARS AGO 10/12/2016 [place] History of tobacco use QUIT TOBACCO USE > 7 YEARS AGO 10/10/2015 [place] History of tobacco use QUIT TOBACCO USE > 7 YEARS AGO 02/04/2012 [place] Plan of Care List of future care activities from Department of [facility] Affairs facilities. Additional future care activities may be listed in the Assessment and Plan section. Date/Time Care Activity Care Activity Detail Facili ty 06/27/2024 AMBULATORY - NONE AMBULATORY - NONE [facility] 10/11/2024 AMBULATORY - MEDICINE AMBULATORY - MEDICI NE [facility]
--- OUTSIDE RECORDS SUMMARY | 2024-05-08 09:39 | XMS_ITS | Patient Health Record ---
[facility] Organization [facility] Address [address] [place] [address] Care Team Providers Care Registered Associate Name Role Phone Ree Larkin MD Primary Care Provider Brian Quintero Jr Unavailable Allergies Allergen (clinical drug ingredient) Drug/Non Drug Allergy documented on EMR Reaction Allergy Type Onset Date Status meperidine Demerol Unknown Drug Allergy Active Reason For Referral No Information Medications Medication SIG (Take, Route, Frequency, Duration) Notes Start Date End Date Status Omeprazole 20 MG 1 capsule Orally Onc e a day Active Lisinopril 20 MG 1 tablet Orally Once a day Active Metamucil Active Metamucil - 1 packet with 8 ounc es of liquid as needed Orally Three times a day Active Omeprazole 20 MG 1 capsule 30 minutes before morning meal Orally Twice a day for 30 day(s) 01/18/2020 Active Atorvastatin Calcium 40 MG 1 tablet Oral ly Once a day for 30 day(s) Active Immunizations Vaccine Route Administration Date Status Comme nts Influenza Unknown 12/01/2020 Administered Influenza Unknown 12/21/2022 Administered Social History Alcohol Screen Question Answer Notes Did you have a drink contain ing alcohol in the past year? Yes How often did you have a dri nk containing alcohol in the past year? Never (0 point) How many drinks did you have on a typical day when you were drinking in the past year? 1 or 2 drinks (0 point) How often did you have 6 or more drinks on one occasion in the past year? 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 Problem 062319799 Generalized abdominal pain (R10.84) Active confirmed Problem Pollard esophagus (064500615) Pollard esophagus (K22.70) Active confirmed Problem 524155095 FH: colon cancer (Z80.0) Active confirmed Vital Signs Temperature 97.3 degrees Fahrenheit 07/06/2023 Blood pressure diastolic 00 mm Hg 07/06/2023 Height 68 in 07/06/2023 Blood pressure systolic 000 mm Hg 07/06/2023 Weight 185 lbs 07/06/2023 BMI 28.13 kg/m2 07/06/2023 Encounters Encounter Location Date Provider Diagnosis [facility] [address] [place] [address] 07/06/2023 Brian Brand Jr Pollard's esophagus without dysplasia K22.70 and Colon cancer screening Z12.11 Assessments Encounter Date Diagnosis (ICD Code) Assessment Notes Treatment Notes Treatment Clinical Notes Section Notes 07/06/2023 Colon cancer screening (ICD-10 - Z12.11) We discussed Pollard's esophagus and gastroesophageal reflux disease today. We recommended he continue omeprazole. Reflux symptoms are under good control. He is up-to-date on colorectal cancer screening. Followup will be in one year. 07/06/2023 Pollard's esophagus without dysplasia (ICD-10 - K22.70) Pollard esophagus material was printed We discussed Pollard's esophagus and gastroesophageal reflux disease today. We recommended he continue omeprazole. Reflux symptoms are under good control. He is up-to-date on colorectal cancer screening. Followup will be in one year. Plan Of Treatment Pending Test Test Name Order Date LIVER PROFILE 01/18/2020 LIPASE 01/18/2020 CBC w/o DIFF 01/18/2020 US ABD 01/18/2020 Future Test Test Name Order Date UPPER GI ENDOSCOPY 09/13/2012 UPPER GI ENDOSCOPY 08/27/2015 COLONOSCOPY 08/27/2015 UPPER GI ENDOSCOPY 01/12/2021 COLONOSCOPY 01/12/2021 Insurance Providers Payer Name Payer Address Payer Phone Subscriber Number Group Number Insured Name Patient Relationship to Insured Coverage Start Date Coverage End Date [facility] [address] [facility] [place] [phone] [id number] ALEXANDER MUNOZ Self - patient is the insured Medical (General) History Medical History History ICD Code hypertension BPH Dupuytren's contracture elevated cholesterol Tachycardia PTSD Pollard's esophagus, EGD 02/17, no Coulter tt's on biopsy, followup optional Colon polyps, last colonosco py colonoscopy 02/17, hyperplastic polyps, five-year followup optional prostate cancer 2021, status post seed p lacement and hormonal therapy Surgical History Surgery Date(Month/Year) tonsillectomy hernia repair x4 right knee arthroscopy colonoscopy 01/07/16, hyperpl astic polyp. Five-year followup due to family history 01/18
--- OUTSIDE RECORDS SUMMARY | 2024-05-08 09:39 | XMS_ITS ---
Author Name [facility] [place] [facility] [place] [facility] [place] Address [address] [place] [id number] Care Team Providers Care Patient Sitter Name Role Phone DARRIUSRAJAN Primary Care Provider Unavailabl e Insurance Providers: [...] Name Patient's Relationship to Policy [facility] (WNR) MEDICARE ADVANTAGE [facility] (WNR) Feb 28, 2013 [id number] ALEXANDER MUNOZ PATIENT [facility] Feb 28, 2013 [id number] ALEXANDER MUNOZ PATIENT Selected Encounter This section includes the information on record at [place] for the Encounter. Date/Time Encounter Type Encounter Description Reason Pro vider Source Apr 26, 2024 08:07 AM Outpatient Encounter DENTAL IHE Encounter Template Text not used by [place] Plan of Treatment: Future Appointments (+ 6 [...] 20 appointments. The data comes from all [place] treatment facilities. Appointment Date/Time Appointment Type Appointme nt Facility Name Jun 27, 2024 07:30 AM AMBULATORY - NONE IN [facility] Oct 11, 2024 10:00 AM [facility] Social History: Smoking Status (Most current) and Tobacco Use (All prior to encounter date) This section includes the most current, and the historical, smoking and tobacco- related health factors from the [place] facility where the Encounter took place. Current Smoking Status This section includes the most current smoking, or tobacco-related health factor, from the [place] facility where the Encounter took place. Date/Time Current Smoking Status Comment Facil ity Dec 13, 2018 11:47 AM ORYX ADMIT TOBACCO SCREEN NO [facility] Tobacco Use History This section includes a history of the smoking, or tobacco-related health factors, that were collected on or before the date of the Encounter. The data comes from the [place] facility where the Encounter took place. Date/Time Smoking Status/Tobacco Use Comment F acility Aug 22, 2018 11:38 AM [facility]-TOBACCO [facility] Aug 22, 2018 11:38 AM [facility]-TOBACCO [facility]IT [facility] Encounter Notes: All associated encounter notes This section contains the clinical notes associated to the Encounter. Date/Time Encounter Note(s) Provider Source Apr 26, 2024 08:07 AM DENTISTRY TELEPHON E ENCOUNTER NOTE: LOCAL TITLE: TELEPHONE NOTE/DENTAL STANDARD TITLE: DENTISTRY TELEPHONE ENCOUNTER NOTE DATE OF NOTE: APR 26, 2024@08:07 ENTRY DATE: APR 26, 2024@08:07:14 AUTHOR: YELENA TEE EXP COSIGNER: URGENCY: STATUS: COMPLETED Called and spoke with pt, appointment with dental on 04/26/2024 has been cancelled and rescheduled to 06/27/2024 /gelacio/ YELENA TEE [employer] MANUAL [employer]S THERAPIST Signed: 04/26/2024 08:07 YELENA TEE [facility]
--- OUTSIDE RECORDS SUMMARY | 2024-05-08 09:39 | XMS_ITS ---
Author Organization [facility] Address [address] [place] [id number] Care Team Providers Care Property And Casualty Insurance Agent Name Role Phone Ree Larkin MD Primary Care Provider Brian Quintero Jr Unavailable Allergies Allergen (clinical drug ingredient) Drug/Non Drug Allergy documented on EMR Reaction Allergy Type Onset Date Status meperidine Demerol Unknown Drug Allergy Active REASON FOR VISIT Patient presents today for otto's esophagus Medications Medication SIG (Take, Route, Frequency, Duration) Notes Start Date End Date Status Omeprazole 20 MG 1 capsule Orally Onc e a day Active Lisinopril 20 MG 1 tablet Orally Once a day Active Metamucil Active Atorvastatin Calcium 40 MG 1 tablet Oral ly Once a day for 30 day(s) Active Metamucil - 1 packet with 8 ounc es of liquid as needed Orally Three times a day Active Omeprazole 20 MG 1 capsule 30 minutes before morning meal Orally Twice a day for 30 day(s) 01/18/2020 Active Social History Alcohol Screen Question Answer Notes [...] Never (0 point) Points 0 Interpretation Negative Vital Signs Temperature 97.3 degrees Fahrenheit 07/06/19 24 Blood pressure systolic 000 mm Hg 07/06/19 24 Blood pressure diastolic 00 mm Hg 024 Height 68 in 07/06/2023 Weight 185 lbs 07/06/2023 BMI 28.13 kg/m2 07/06/2023 Encounters Encounter Location Date Provider Diagnosis [facility] [address] [place] [id number] 07/06/2023 Brian Brand Jr Otto's esophagus without dysplasia K22.70 and Colon cancer screening Z12.11 Assessments Encounter Date Diagnosis (ICD Code) Assessment Notes Treatment Notes Treatment Clinical Notes Section Notes 07/06/2023 Otto's esophagus without dysplasia (ICD-10 - K22.70) Otto esophagus material was printed We discussed Otto's esophagus and gastroesophageal reflux disease today. We recommended he continue omeprazole. Reflux symptoms are under good control. He is up-to-date on colorectal cancer screening. Followup will be in one year. 07/06/2023 Colon cancer screening (ICD-10 - Z12.11) We discussed Otto's esophagus and gastroesophageal reflux disease today. We recommended he continue omeprazole. Reflux symptoms are under good control. He is up-to-date on colorectal cancer screening. Followup will be in one year. Plan Of Treatment Treatment Notes Assessment Notes Otto's esophagus without dysplasia Ba rrett esophagus material was printed Next Appt Details Follow Up: 1 Year, Reason: Progress Notes * ALEXANDER MUNOZDOB:1945 ([age] yo M)Acc No.[id number]:07/06/2023 Progress Notes Patient:?ALEXANDER MUNOZ Provider:?Brian Brand MD :1945???Age:77 Y???Sex:Male Aidan e:07/06/2023 Address:[address] [place], [place] [id number] Pcp:Ree Larkin MD Subjective: * Chief Complaints: * ???1. Patient presents today for otto's esophagus. * HPI: ???New symptom(s):? Alexander is a 77-year-old man seen today in followup of Otto's esophagus and colon polyps. He underwent upper endoscopy and colonoscopy in January 2021. This showed no Otto's esophagus or H. pylori on biopsies. 2 hyperplastic polyps were removed from the colon. We reviewed this today. ?She reports she is doing well. He continues on omeprazole b.i.d. for his reflux which controls his symptoms well. He does have some postnasal drip and we discussed using dagd-emr-maljqua allergy medication and nasal steroids for a period. ?He is also status post prostate cancer treatment with radiation therapy and hormonal therapy. He reports this is under control. * Medical History:?Hypertensio n, BPH, Dupuytren's contracture, Elevated cholesterol, Tachycardia, PTSD, Otto's esophagus, EGD 02/17, no Otto's on biopsy, followup optional, Colon polyps, last colonoscopy colonoscopy 02/17, hyperplastic polyps, five-year followup optional, Prostate cancer 2021, status post seed placement and hormonal therapy. * Surgical History:?tonsillect titi , hernia repair x4 , right knee arthroscopy , colonoscopy 01/07/16, hyperplastic polyp. Five-year followup due to family history 01/18 . * Family History:?Father: dece ased, diagnosed with Colon cancer.?Mother: , diagnosed with Colon cancer.? Positive for colon cancer in both parents paternal cousin colon cancer. No family history of liver cancer. * Social History:?Tobacco Use:?Tobacco Use/Smoking?Patient is a: former smoker , How long has it been since you last smoked?: > 10 years.?Drugs/Alcohol:?Alcohol Screen?Did you have a drink containing alcohol in the past year??Yes,?How often did you have a drink containing alcohol in the past year??Never (0 point),?How many drinks did you have on a typical day when you were drinking in the past year??1 or 2 drinks (0 point),?How often did you have 6 or more drinks on one occasion in the past year??Never (0 point),?Points?0,?Interpretation?Negative.?Miscellaneous:?Marital status: . Occupation: retired. * Medications:?Taking Atorvast atin Calcium 40 MG Tablet 1 tablet Orally Once a day, Taking Lisinopril 20 MG Tablet 1 tablet Orally Once a day, Taking Metamucil , Taking Omeprazole 20 MG Capsule Delayed Release 1 capsule Orally Once a day, Taking Metamucil - Packet 1 packet with 8 ounces of liquid as needed Orally Three times a day, Taking Omeprazole 20 MG Capsule Delayed Release 1 capsule 30 minutes before morning meal Orally Twice a day, Discontinued Simvastatin 40 MG Tablet 1 tablet in the evening Orally Once a day, Discontinued MiraLax (colon prep) 17 GM/SCOOP Powder mixed with Gatorade or Crystal Light Orally begin at 5:00 p.m. the day before the procedure, Medication List reviewed and reconciled with the patient * Allergies:?Demerol. Objective: * Vitals:?Wt: 185 lbs, Ht: 68 in, BMI:28.13 Index, BP: 000/00 mm Hg, Temp: 97.3. * Examination: ???General Examination: ???On examination today, he appears well. Skin is anicteric. Lungs are clear. Heart shows regular rate and rhythm. Abdomen is soft without focal masses. Assessment: * Assessment: 1.?Otto's esophagus witho ut dysplasia - K22.70 (Primary)?2.?Colon cancer screening - Z12.11? We discussed Otto's esoph jeannette and gastroesophageal reflux disease today. We recommended he continue omeprazole. Reflux symptoms are under good control. He is up-to-date on colorectal cancer screening. Followup will be in one year. Plan: * Treatment: * Procedure Codes:?3017F COLOR ECTAL CA SCREEN DOC REV, G9903 Pt scrn tbco id as non user, G9744 PATIENT NOT ELIG D/T ACTIVE DX HTN * Preventive Medicine:? ??Counseling:?Care goal follow-up plan:?Above Normal BMI Follow-up?Giving encouragement to exercise,?BMI management provided?Yes.? * Follow Up:?1 Year * * Sign off status: Completed true * Provider:?Brian Brand MD Date:?0 07/06/2023 Generated for Ashley white/John/Ethanitting on:?05/08/2024 09:39 AM EDT History and Physical Notes * HPI (History of Present Illness) Category Sub-Category Detail Notes Category Not es New symptom(s) Alexander is a 77-year-old man seen today in followup of Otto's esophagus and colon polyps. He underwent upper endoscopy and colonoscopy in January 2021. This showed no Otto's esophagus or H. pylori on biopsies. 2 hyperplastic polyps were removed from the colon. We reviewed this today. She reports she is doing well. He continues on omeprazole b.i.d. for his reflux which controls his symptoms well. He does have some postnasal drip and we discussed using wxdi-ceh-tpgsdjl allergy medication and nasal steroids for a period. He is also status post prostate cancer treatment with radiation therapy and hormonal therapy. He reports this is under control. Examination Category Sub-Category Detail Notes Category Not es General Examination On exami nation today, he appears well. Skin is anicteric. Lungs are clear. Heart shows regular rate and rhythm. Abdomen is soft without focal masses.
--- OUTSIDE RECORDS SUMMARY | 2024-05-08 09:39 | XMS_ITS ---
Author Name [facility] [place] [facility] [place] [facility] [place] Address [address] [place] [address] Care Team Providers Care Enterprise Solutions Architect Name Role Phone RAJAN RIZO Primary Care [...] Name Patient's Relationship to Policy Aldana [facility] (WNR) MEDICARE ADVANTAGE [facility] (WNR) Feb 28, 2013 [id number] ALEXANDER MUNOZ PATIENT [facility] Feb 28, 2013 [id number] ALEXANDER MUNOZ PATIENT Selected Encounter This section includes the information on record at [place] for the Encounter. Date/Time Encounter Type Encounter Description Reason Provider Source Nov 22, 2023 09:00 AM HEARING AID FITTING/CHECKIN G AUDIOLOGY ICD-10-CM H90.3 Sensorineural hearing loss, bilateral OSVALDO SZYMANSKI Y SIDDHARTHA VERNON Encounter Template Text not used by [place] Assessments - Encounter Diagnoses This section includes the primary and secondary diagnoses documented for the Encounter. Date/Time Primary/Secondary Diagnosis Diagnosis Name Provider Source Nov 22, 2023 10:00 AM PRIMARY Sensorineural hearing loss, bilateral SZYMANSKI,JANNETHBERL Y [facility] Nov 22, 2023 10:00 AM SECONDARY Encounter for fitting and adjustment of hearing aid [facility]VAL[facility] Nov 22, 2023 10:00 AM SECONDARY Tinnitus, bilateral OSVALDO [facility]SKI [facility] Plan of Treatment: Future Appointments (+ 6 months) and Future Tests (+/- 45 days) The Plan of Treatment section includes future care activities for the patient from all [place] [facility]. This section includes future appointments and future orders which are active, pending or scheduled. Future Appointments This section includes appointments that were scheduled to occur 6 months from the date of the Encounter, up to a maximum of 20 appointments. The data comes from all [place] treatment facilities. Appointment Date/Time Appointment Type Appointme nt Facility Name Dec 20, 2023 09:00 AM AMBULATORY - REHAB MEDICIN E [facility] Dec 27, 2023 10:45 AM AMBULATORY - MEDICINE [facility] Social History: Smoking Status (Most current) and Tobacco Use (All prior to encounter date) This section includes the most current, and the historical, smoking and tobacco- related health factors from the [place] facility where the Encounter took place. Current Smoking Status This section includes the most current smoking, or tobacco-related health factor, from the [place] facility where the Encounter took place. Date/Time Current Smoking Status Comment Ellie ity Dec 13, 2018 11:47 AM ORYX ADMIT TOBACCO SCREEN NO [facility] Tobacco Use History This section includes a history of the smoking, or tobacco-related health factors, that were collected on or before the date of the Encounter. The data comes from the [place] facility where the Encounter took place. Date/Time Smoking Status/Tobacco Use Comment F acility Aug 22, 2018 11:38 AM VA-TOBACCO [facility] Aug 22, 2018 11:38 AM VA-TOBACCO QUIT 15 YRS [facility] Encounter Notes: All associated encounter notes This section contains the clinical notes associated to the Encounter. Date/Time Encounter Note(s) Provider Source Nov 22, 2023 07:24 AM AUDIOLOGY E & M NOTE: LOCAL TITLE: AUDIOLOGY CLINIC STANDARD TITLE: AUDIOLOGY E & M NOTE DATE OF NOTE: NOV 22, 2023@07:24 ENTRY DATE: NOV 22, 2023@07:24:33 AUTHOR: TERELL SZYMANSKI COSIGNER: URGENCY: STATUS: COMPLETED AUDIOLOGY CLINIC Has ADDENDA Dx CODE: H90.3-Sensorineural Hearing Loss, Bilateral APPOINTMENT TYPE: Hearing Re-Evaluation and Hearing Aid Selection BACKGROUND/HISTORY: [place]o was seen 11/22/23 for a hearing re-evaluation and hearing aid selection appointment, unaccompanied. He was fit with Signia Pure 7NX RICs on 07/05/18. He is eligible for new [facility] aids through the [facility] due to the age of the current devices. His last hearing evaluation was on 05/22/18 and he does not believe his hearing has declined since then. He reports longstanding constant bilateral tinnitus, left ear worse. He reports a single episode of vertigo in June, which he believes was result of dehydration. Medical history includes: Active problems - Computerized Problem List is the source for the followin. Prostate cancer 2. Insomnia 3. Bilateral hearing loss 4. Cataract 5. Seasonal allergic rhinitis 6. Obstructive sleep apnea 7. Primary Care Physician 8. Posttraumatic stress disorder 9. Adjustment disorder with mixed emotional features 10. Pollard's esophagus 11. Hypertension 12. Hyperlipidemia 13. Benign prostatic hypertrophy 14. Colonoscopy Screening 15. Tinnitus 16. History of Basal Cell Carcinoma of skin ASSESMENT: Results of today's testing are as follows: Otoscopy was WNL bilaterally. Normal tympanogram obtained in the right ear. CNT, could not maintain seal for tympanogram in the left ear. Pure tone audiometric testing under headphones in the right ear revealed hearing WNL through 2 kHz sloping to a severe SNHL. Testing in the left ear revealed hearing WNL through 1 kHz sloping to a profound SNHL. Stable asymmetry, left ear poorer 1.5-8kHz. SRT WORD RECOGNITION (Recorded [place] CNC 1/2 Word List) Right 10dBHL 92% @ 70dBHL/40dBm Left 15dBHL 84% @ 85dBHL/55dBm No significant changes were found when compared to the 05/22/18 audiological evaluation. HEARING AID CHECK: Both hearing aids were cleaned and checked, and found to be in good working order. Domes, wax guards, and retention tails were replaced. Hearing aids were connected to Thinkglue and recalculated to today's test results. A firmware update was completed. HEARING AID SELECTION: Different hearing aid options were discussed. He is interested in rechargeable technology similar to his previous hearing aids and does not have a pacemaker. [place]o does not want to try an earmold and denies any issues with feedback with his current aids. Oticon Intent 1 miniRITE-Rs were selected and ordered in [facility] to be used with open domes. EDUCATION/COUNSELING: The patient was counseled re: today's hearing test results. He demonstrated satisfactory understanding of the education and plan, and was given the opportunity to ask questions throughout today's visit. PLAN: 1. RTC on 12/20/23 at 9AM for 60 minute hearing aid fitting appointment. 2. Hearing re-evaluation in 3-5 years, or sooner if change in hearing occurs. Patient Education Education provided on the following topics: Hearing test results Education provided to: P Response to Education: VU Fuentes Patient P Family F Significant Other SO Verbalizes Understanding VU Returns Demonstration RD Performs Independently PI Lacks Comprehension LC Refused Education RE Not Applicable NA /gelacio/ TERELL SZYMANSKI STAFF RENTAL CAR PORTER Signed: 11/22/2023 10:00 Receipt Acknowledged By: 11/22/2023 11:28 /gelacio/ YEIMI CHAPMAN SUPERVISORY DATA SCIENCES DIRECTOR 11/24/2023 ADDENDUM STATUS: COMPLETED Hearing aids received and certified, upcoming appointment scheduled on 12/20/2023. /gelacio/ KARLEE REED Audiology Health Aml Analyst Signed: 11/24/2023 08:09 TERELL SZYMANSKIRGlia [facility]
--- OUTSIDE RECORDS SUMMARY | 2024-05-08 09:39 | XMS_ITS | Encounter Summary ---
Author Name [facility] [place] [facility] [place] Address [address] [place] [id number] Care Team Providers Care Epic Willow Analyst Name Role Phone DARRIUSRAJAN Primary Care Provider [...] Name Patient's Relationship to Policy Aldana [facility] (R) MEDICARE ADVANTAGE [facility] (R) Feb 28, 2013 [id number] ALEXANDER MUNOZ PATIENT [facility] SPECIAL CLASS INSURANCE [facility] Feb 28, 2013 [id number] ALEXANDER MUNOZ PATIENT Selected Encounter This section includes the information on record at [place] for the Encounter. Date/Time Encounter Type Encounter Description Reason Provider Source Dec 20, 2023 09:00 AM HEARING SERVICE AUDIOLOGY ICD-10-CM Z46.1 Encounter for fitting and adjustment of hearing aid GEOVANNI BURKETT Encounter Template Text not used by [place] Assessments - Encounter Diagnoses This section includes the primary and secondary diagnoses documented for the Encounter. Date/Time Primary/Secondary Diagnosis Diagnosis Name Provider Source Dec 20, 2023 09:45 AM PRIMARY Encounter for fitting and adjustment of hearing aid GEOVANNI BURKETT [facility] Dec 20, 2023 09:45 AM SECONDARY Sensorineural hearing loss, bilateral [facility]T [facility] Dec 20, 2023 09:45 AM SECONDARY Tinnitus, bilateral GEOVANNI BURKETT [facility] Plan of Treatment: Future Appointments (+ 6 months) and Future Tests (+/- 45 days) The Plan of Treatment section includes future care activities for the patient from all [place] [facility]. This section includes future appointments and future orders which are active, pending or scheduled. Future Appointments This section includes appointments that were scheduled to occur 6 months from the date of the Encounter, up to a maximum of 20 appointments. The data comes from all [place] treatment facilities. Appointment Date/Time Appointment Type Appointme nt Facility Name Dec 27, 2023 10:45 AM AMBULATORY - MEDICINE [facility] Social History: Smoking Status (Most current) and Tobacco Use (All prior to encounter date) This section includes the most current, and the historical, smoking and tobacco- related health factors from the [place] facility where the Encounter took place. Current Smoking Status This section includes the most current smoking, or tobacco-related health factor, from the [place] facility where the Encounter took place. Date/Time Current Smoking Status Comment Facil ity Dec 13, 2018 11:47 AM ORYX ADMIT TOBACCO SCREEN NO [facility] Tobacco Use History This section includes a history of the smoking, or tobacco-related health factors, that were collected on or before the date of the Encounter. The data comes from the [place] facility where the Encounter took place. Date/Time Smoking Status/Tobacco Use Comment F acility Aug 22, 2018 11:38 AM [facility]-TOBACCO [facility] Aug 22, 2018 11:38 AM [place]-TOBACCO QUIT 15 YRS OR MORE [facility] Encounter Notes: All associated encounter notes This section contains the clinical notes associated to the Encounter. Date/Time Encounter Note(s) Provider Source Dec 20, 2023 07:45 AM AUDIOLOGY E & M NO TE: [facility] TITLE: AUDIOLOGY CLINIC STANDARD TITLE: AUDIOLOGY E & M NOTE DATE OF NOTE: DEC 20, 2023@07:45 ENTRY DATE: DEC 20, 2023@07:45:35 AUTHOR: GEOVANNI BURKETT COSIGNER: URGENCY: STATUS: COMPLETED AUDIOLOGY CLINIC Has ADDENDA Dx CODE: Z46.1- Encounter for Fitting/Programming Hearing Aid(s); H90.3- Sensorineural Hearing Loss, Bilateral APPOINTMENT TYPE: Hearing Aid Fitting SUBJECTIVE (S): The patient was seen today for hearing aid fitting and issuance, unaccompanied. He had previously been evaluated and found to exhibit significant hearing loss for which amplification was recommended. He is a previous user of hearing aids, and was fit on 07/05/18 with SIGNIA PURE 312 7NX RICs. How does the patient best learn? Verbal instruction, demonstration Does the patient have any cultural and sikhism beliefs, emotional barriers, physical or cognitive limitations, and communication barriers which may impact his ability to learn? No Desire and motivation to learn? Good OBJECTIVE (O): Physical fit of hearing aids was good. Patient verified comfort. Verification of an appropriate acoustic response was obtained using Real Ear measurements (speech mapping) and NAL-NL2 targets. The patient reported good subjective benefit as well. Feedback actuarial manager was run. Hearing aids were found to be meeting targets adequately and MPO was not exceeding estimated UCL. Settings stored in RHONDA. Otoscopy revealed partially occluding cerumen bilaterally. With 's verbal consent, cerumen removal was performed without incident using a lighted curette bilaterally. ASSESSMENT (A): The following devices were issued: Make: OTICON Model: INTENT 1 MINIRITE-R Right Serial Number: [id number] Left Serial Number: [id number] Battery size: Rechargeable Warranty ends: 12/21/26 Trial Period ends: 05/20/24 Domes/wax guards: 8mm openbass domes, Prowax minifit [employer] size/power: Size 3 85 gain Program(s): Automatic Button(s): Short press= Synced VC, R- Raise, L - Lower Long press= Program Extra-long press= Power on/off Fitting Formula: NAL-NL2 Remote Programming: HAs are capable Bluetooth: Paired to iPhone for streaming Counseling was completed throughout todays appointment using a standardized curriculum that includes but is not limited to; realistic expectations with amplification in adverse listening environments, acclimatization to own voice and environmental sounds (following real-ear measurements), the importance of consistent use of amplification, proper insertion/removal, care and maintenance (including wax guards/domes if applicable), signal and alerts of devices, and charging/batteries. The was provided the opportunity to practice in office and reports confidence/understanding in all items reviewed. Time Spent= 20 minutes The patient was informed of and signed/agreed to [place] policy on hearing aid issuance: Yes Users are responsible for the maintenance and security of their devices. Determination of need to replace a hearing aid is made by the [place] confidential investigator. Hearing aids will not be replaced in cases of neglect, abuse, or excessive loss. Items issued are for personal use only. Prognosis for successful hearing aid use is good. PLAN (P): 1. Follow-up for programming/adjustments as needed. 2. The International Outcome Inventory-Hearing Aids (IOI-IRELAND) will be mailed to the in four weeks. He was asked to complete and mail back to clinic after completion. Patient Education Education provided on the following topics: Hearing aid use, care, maintenance Education provided to: P Response to Education: GORGE WEINER, SANDRA Fuentes Patient P Family F Significant Other SO Verbalizes Understanding VU Returns Demonstration RD Performs Independently PI Lacks Comprehension LC Refused Education RE Not Applicable NA /gelacio/ TAMEKA SANTA, CCC-A STAFF OPERATIONS SECTION MANAGER Signed: 12/20/2023 09:46 02/09/2024 ADDENDUM STATUS: COMPLETED [place] returned IOI-IRELAND Outcome Measure to the clinic via mail with an overall score of 30 Based on this score: i. No follow-up call is indicated _XX_ ii. Follow-up call is indicated and fitting clinician will be notified __ /es/ KARLEE REED Audiology Health Sales Host Signed: 02/09/2024 10:49 GEOVANNI BURKETT [facility]
--- OUTSIDE RECORDS SUMMARY | 2024-05-08 09:39 | XMS_ITS | Encounter Summary ---
Author Name [facility] [place] [facility] [place] Address [address] [place] [id number] Care Team Providers Care Pricing Associate Name Role Phone RAJAN RIZO Primary Care [...] Name Patient's Relationship to Policy [facility] (WNR) MEDICARE ADVANTAGE [facility] (R) Feb 28, 2013 [id number] ALEXANDER MUNOZ PATIENT [facility] Feb 28, 2013 [id number] ALEXANDER MUNOZ PATIENT Selected Encounter This section includes the information on record at [place] for the Encounter. Date/Time Encounter Type Encounter Description Reason Provider Source Oct 11, 2023 11:00 AM OFFICE O/P EST LOW 20 MIN PRIMARY CARE/MEDICINE ICD-10-CM I10 Essential (primary) hypertension RAJAN RIZO Encounter Template Text not used by [place] Assessments - Encounter Diagnoses This section includes the primary and secondary diagnoses documented for the Encounter. Date/Time Primary/Secondary Diagnosis Diagnosis Name Provider Source Oct 11, 2023 11:34 AM PRIMARY Essential (primary) hypertension RAJAN RIZO Oct 11, 2023 11:34 AM SECONDARY Hyperlipidemia, unspecified RAJAN RIZO [place] Plan of Treatment: Future Appointments (+ 6 months) and Future Tests (+/- 45 days) The Plan of Treatment section includes future care activities for the patient [facility] [place] [facility] This section includes future appointments and future orders which are active, pending or scheduled. Future Appointments This section includes appointments that were scheduled to occur 6 months from the date of the Encounter, up to a maximum of 20 appointments. The data comes from all [place] treatment facilities. Appointment Date/Time Appointment Type Appointme nt Facility Name Oct 25, 2023 09:45 AM [facility] [place] [facility] Nov 22, 2023 09:00 AM [facility] [place] [place] [facility] Dec 20, 2023 09:00 AM [place] [facility] [place] [facility] Dec 27, 2023 10:45 AM [facility] [place] [facility] Social History: Smoking Status (Most current) and Tobacco Use (All prior to encounter date) This section includes the most current, and the historical, smoking and tobacco- related health factors from the [place] facility where the Encounter took place. Current Smoking Status This section includes the most current smoking, or tobacco-related health factor, from the [place] facility where the Encounter took place. Date/Time Current Smoking Status Comment Ellie gamez Oct 11, 2023 11:00 AM VA-TOBACCO FORMER USER [place] Tobacco Use History This section includes a history of the smoking, or tobacco-related health factors, that were collected on or before the date of the Encounter. The data comes from the [place] facility where the Encounter took place. Date/Time Smoking Status/Tobacco Use Comment F acility Oct 11, 2023 11:00 AM VA-TOBACCO QUIT 15 YRS OR MORE [place] Oct 11, 2022 08:30 AM VA-TOBACCO NEVER USED [place] Oct 08, 2021 09:00 AM VA-TOBACCO NEVER USED [place] Oct 08, 2020 09:00 AM VA-TOBACCO NEVER USED [place] Oct 30, 2019 09:00 AM VA-TOBACCO FORMER USER [place] Oct 30, 2019 09:00 AM VA-TOBACCO QUIT 15 YRS OR MORE [place] Oct 12, 2017 06:09 AM QUIT TOBACCO USE > 7 YEARS AGO Quit 50 years ago [place] Oct 12, 2016 08:39 AM QUIT TOBACCO USE 1-7 YEARS AGO [place] Oct 10, 2015 01:04 PM QUIT TOBACCO USE > 7 YEARS AGO [place] Feb 04, 2012 09:53 AM QUIT TOBACCO USE > 7 YEARS AGO [place] Encounter Notes: All associated encounter notes This section contains the clinical notes associated to the Encounter. Date/Time Encounter Note(s) Provider Source Oct 11, 2023 11:06 AM PREVENTIVE MEDICIN E NURSING NOTE: LOCAL TITLE: CLINICAL REMINDERS/NURSING STANDARD TITLE: PREVENTIVE MEDICINE NURSING NOTE DATE OF NOTE: OCT 11, 2023@11:06 ENTRY DATE: OCT 11, 2023@11:06:14 AUTHOR: REBCECA MORA COSIGNER: URGENCY: STATUS: COMPLETED Advance Directive Screen MH AD: Patient does not have a completed advance directive on file at any facility, VA or outside. S/he is not interested in completing one at this time. The patient received education about Advance Directives and written notification of his/her rights. Suicide Screen: C-SSRS Screening [place] Suicide Severity Rating Scale (C-SSRS) screener 1. Over the past month, have you wished you were or wished you could go to sleep and not wake up? No 2. Over the past month, have you had any actual thoughts of killing yourself? No 3. Over the past month, have you been thinking about how you might do this? Response not required due to responses to other questions. 4. Over the past month, have you had these thoughts and had some intention of acting on them? Response not required due to responses to other questions. 5. Over the past month, have you started to work out or worked out the details of how to kill yourself? Response not required due to responses to other questions. 6. If yes, at any time in the past month did you intend to carry out this plan? Response not required due to responses to other questions. 7. In your lifetime, have you ever done anything, started to do anything, or prepared to do anything to end your life (for example, collected pills, obtained a gun, gave away valuables, went to the roof but didn't jump)? No 8. If YES, was this within the past 3 months? Response not required due to responses to other questions. Depression Screening: Perform PHQ-2 A PHQ-2 screen was performed. The score was 0 which is a negative screen for depression. Over the past two weeks, how often have you been bothered by the following problems? 1. Little interest or pleasure in doing things Not at all 2. Feeling down, depressed, or hopeless Not at all Falls & Incontinence Screen: Falls Screen: 4. No falls within the past year. Incontinence Screen No incontinence. PTSD Screening: PC-PTSD-5 A PTSD screening test (PC-PTSD-5) was negative (score=0). IN THE PAST MONTH, have you ever had any experience that was so frightening, horrible or traumatic. For example: A serious accident or fire a physical or sexual assault or abuse An earthquake or flood A war Seeing someone be killed or seriously injured Having a loved one through homicide or suicide 1. Have you ever experienced this kind of event? NO 2. Had nightmares about the event(s) or thought about the event(s) when you did not want to? Response not required due to responses to other questions. 3. Tried hard not to think about the event(s) or went out of your way to avoid situations that reminded you of the event(s)? Response not required due to responses to other questions. 4. Been constantly on guard, watchful, or easily startled? Response not required due to responses to other questions. 5. [place] numb or detached from people, activities, or your surroundings? Response not required due to responses to other questions. 6. [place] guilty or unable to stop blaming yourself or others for the event(s) or any problems the event(s) may have caused? Response not required due to responses to other questions. Tobacco Use Screening: The patient is a former tobacco user. The patient quit fifteen or more years ago. Alcohol Use Screen (AUDIT-C): Alcohol Screen: SCREEN FOR ALCOHOL (AUDIT-C) An alcohol screening test (AUDIT-C) was negative (score=0). 1. How often did you have a drink containing alcohol in the past year? Consider a drink to be a 12 ounce can or bottle of regular beer, 8 ounces of malt liquor, a 5 ounce glass of table wine, or a 1.5 ounce shot of liquor (like scotch, gin, or vodka). Never 2. How many drinks containing alcohol did you have on a typical day when you were drinking in the past year? Response not required due to responses to other questions. 3. How often did you have six or more drinks on one occasion in the past year? Response not required due to responses to other questions. COVID-19 Immunization: Referred to another clinic for immunization (desired vaccine unavailable at this location) Herpes Zoster (Shingles) Vaccine: The patient declines to receive the recommended dose of zoster (shingles) vaccine. Immunization: ZOSTER RECOMBINANT Refusal Reason: PATIENT DECISION Patient refuses all immunization(s) in the ZOSTER group Date Documented: 10/11/23 11:08 Sexual Orientation: The patient thinks of their sexual orientation as: Straight or Heterosexual /es/ REBECCA MORA LPN PACT 10 Signed: 10/11/2023 11:08 REBECCA MORA Oct 11, 2023 06:59 AM PHYSICIAN NOTE: LOCAL TITLE: MD NOTE STANDARD TITLE: PHYSICIAN NOTE DATE OF NOTE: OCT 11, 2023@06:59 ENTRY DATE: OCT 11, 2023@06:59:16 AUTHOR: RAJAN RIZO EXP COSIGNER: URGENCY: STATUS: COMPLETED HISTORY OF PRESENT ILLNESS: ALEXANDER MUNOZ, is a 78 yo MALE , who presents at the [facility] for his annual visit. He maintains a nonVA PCP: Dr Ree Larkin. NonVA Providers: Urology - Dr Farley Gastroenterology - Dr Brand Active problems - Computerized Problem List is [...] History of Basal Cell Carcinoma of skin The following VA and Non-VA meds were reconciled with patient: Active Outpatient Medications (including Supplies): Issue Date Status Last Fill Active Outpatient Medications Refills Expiration ======= 1) ATORVASTATIN CALCIUM 40MG TAB Qty: 180 ACTIVE Issu:12-21-22 for 90 days Sig: TAKE ONE TABLET BY Refills: 1 Last:03-19-23 MOUTH AT BEDTIME Expr:12-22-23 2) LISINOPRIL 20MG TAB Qty: 90 for 90 days ACTIVE Issu:06-20-23 Sig: TAKE ONE TABLET BY MOUTH ONCE Refills: 0 Last:09-19-23 DAILY TO CONTROL BLOOD PRESSURE Expr:06-20-24 3) OMEPRAZOLE 20MG EC CAP Qty: 180 for 90 ACTIVE Issu:06-20-23 days Sig: TAKE ONE CAPSULE BY MOUTH Refills: 1 Last:06-22-23 TWICE DAILY Expr:06-20-24 Start Date Active Non-VA Medications Refills Expiration ======= 1) Non-VA PSYLLIUM ORAL PWD Si ACTIVE TEASPOONFUL BY MOUTH ONCE DAILY 4 Total Medications ALLERGIES: ========= DEMEROL HISTORY: PERIOD OF SERVICE - [facility] FROM June TO May COMBAT SERVICE INDICATED: No VITAL SIGNS: Blood Pressure 144/78 (10/11/2023 11:05) Pulse 68 (10/11/2023 11:05) Respiration 16 (10/11/2023 11:05) Pulse Oximetry 99% (10/11/2023 11:05) Temperature 98 F [36.7 C] (10/11/2023 11:05) Pain 0 (10/11/2023 11:05) Height 68 in [172.7 cm] (10/11/2023 11:05) Weight 183.8 lb [83.37 kg] (10/11/2023 11:05) BMI BMI: 28.0 REVIEW OF SYSTEMS: CARDIOVASCULAR: No chest pain RESPIRATORY: No SOB, no wheezing GASTROINTESTINAL: No abd pain, no N/V/D MUSCULOSKELETAL: No joint pain, no joint swelling PSYCHIATRIC: No anxiety, no trouble sleeping, no depression NEUROLOGIC: No H/A, no numbness, no weakness, no tingling EXAMINATION: GENERAL: WD/WN , pleasant & in NAD HEENT: Moist mucosa NECK: Supple, no carotid bruits HEART: RRR, S1-S2, no M LUNGS: CTA B/L ABDOMEN: Soft, NT/ND EXTREMITIES: FROM x 4, no edema NEUROLOGIC: AAO x3, no focal findings PSYCHIATRIC: Good eye contact, affect normal ASSESSMENT/PLAN: 1. Hypertension: well controlled on lisinopril 20mg/Day 2. Hyperlipidemia: on atorvastatin 40mg/QHS 3. Pollard's Esophagus: cont omeprazole 20mg/day, managed by Dr Brand 4. Obstructive Sleep Apnea: sleep study 07/27/18 revealed mild JOSE, not using CPAP, waiting to get a particular nose piece 5. Colonoscopy Screening: UTD (12/2015), was due in 12/2020, was put on hold due to his radiation tx, plans to have it done in 2023 6. PTSD: followed by 7. Sensorineural Hearing Loss: B/L, wears hearing aides, managed by [place] audiology 8. Prostate CA: managed by Dr Farley, completed radiation treatments and rec'd one hormone injection FOLLOW UP: 1 year - Annual - vet to bring PCP labs ========= UPCOMING APPOINTMENTS: 10/25/2023 09:45 [facility] 1 AM No barriers; Patient understands and agrees to current treatment plan. If pt has any questions, concerns, or changes in current health status he/she will call or come in to the VA. Follow Up Colonoscopy: Colonoscopy is due based on information available to this reminder. Patient has arranged or is choosing to arrange a Colonoscopy independent of and w/out assistance from this [place]. Medication Reconciliation: Outpatient: Has the patient been taking medications as documented in the EMLR? YES: The patient has been taking medications as documented in the EMLR. Essential Medication List for Review used to complete this medication reconciliation. INCLUDED IN THIS LIST: Alphabetical list of active outpatient prescriptions dispensed from this [place] (local) and dispensed from another VA or DoD facility (remote) as well as inpatient orders (local, pending and active), local clinic medications, locally documented non-VA medications, and local prescriptions that have or been discontinued in the past 90 days. - All changes in medications, including all non-VA/Herbal/OTC medications were entered into CPRS. - If there were any medications the patient should no longer take, they were discontinued. - The patient/caregiver was instructed to update this list, discard old lists, and take this list to the next appointment, whether with a VA or non-VA provider. JLV Link Data on this list may not be complete. Please check [facility] [place]. Allergies/ADRs (Tool #5) FACILITY ALLERGY/ADR -------- No Remote Allergy/ADR Data available for this patient [place] [facility] ([facility] INCLUDED IN THIS LIST: Alphabetical list of active outpatient prescriptions dispensed from this [facility] (local) and dispensed from another VA or DoD facility (remote) as well as inpatient orders (local pending and active), local clinic medications, locally documented non-VA medications, and local prescriptions that have or been discontinued in the past 90 days. Non-VA Meds Last Documented On: Oct 10, 2015 NOTE The display of VA prescriptions dispensed from another VA or DoD facility (remote) is limited to active outpatient prescription entries matched to National Drug File at the originating site and may not include some items such as investigational drugs, compounds, etc. NOT INCLUDED IN THIS LIST: Medications self-entered by the patient into personal health records (i.e. [employer]) are NOT included in this list. Non-VA medications documented outside this [place], remote inpatient orders (regardless of status) and remote clinic medications are NOT included in this list. The patient and provider must always discuss medications the patient is taking, regardless of where the medication was dispensed or obtained. ------ OUTPT AMOXICILLIN 500MG CAP (Status = ) TAKE ONE CAPSULE BY MOUTH EVERY 8 HOURS Rx# [id number] Last Released: 09/06/23 Qty/Days Supply: 17/09 Rx Expiration Date: 10/06/23 Refills Remainin Indication: FOR INFECTION CAUSED BY BACTERIA OUTPT ATORVASTATIN CALCIUM 40MG TAB (Status = Discontinued) TAKE TWO TABLETS BY MOUTH AT BEDTIME Rx# [id number] Last Released: 03/18/23 Qty/Days Supply: 180 Rx Expiration Date: 12/22/23 Refills Remainin Indication: FOR HIGH CHOLESTEROL OUTPT ATORVASTATIN CALCIUM 80MG TAB (Status = Pending) TAKE ONE-HALF TABLET BY MOUTH AT BEDTIME PLEASE DO NOT SPLIT TABS Login Date: 10/11/23 Qty/Days Supply: 45 Refills Ordered: 2 OUTPT IBUPROFEN 600MG TAB (Status = ) TAKE ONE TABLET BY MOUTH EVERY 6 HOURS NEEDED FOR PAIN TAKE WITH FOOD Rx# [id number] Last Released: 09/06/23 Qty/Days Supply: 24/09 Rx Expiration Date: 10/06/23 Refills Remainin Indication: FOR PAIN OUTPT LISINOPRIL 20MG TAB (Status = Active) TAKE ONE TABLET BY MOUTH ONCE DAILY TO CONTROL BLOOD PRESSURE Rx# [id number] Last Released: 09/21/23 Qty/Days Supply: 90/ Rx Expiration Date: 06/20/24 Refills Remainin Indication: FOR HIGH BLOOD PRESSURE OUTPT OMEPRAZOLE 20MG EC CAP (Status = Active) TAKE ONE CAPSULE BY MOUTH TWICE DAILY Rx# [id number] Last Released: 06/23/23 Qty/Days Supply: 180/90 Rx Expiration Date: 06/20/24 Refills Remainin Indication: FOR GASTROESOPHAGEAL REFLUX DISEASE Non-VA PSYLLIUM ORAL PWD TAKE 1 TEASPOONFUL BY MOUTH ONCE DAILY Patient wants to buy from Non-[place] pharmacy. Medication prescribed by Non-VA provider. ------ SUPPLIES ------ /gelacio/ RAJAN RIZO MD Primary Care Physician Signed: 10/11/2023 11:36 RAJAN RIZO [place]
[2024-05-08 11:10] LABS: Prostate Specific Antigen 0.16 ng/mL (<0.05-4.0)
== END 2024-05-08 08:49 | disposition home or self-care (01) ==
LOC: HO.10HDL 08:48
PROVIDERS: Visit Provider Urology
DX: Z12.5 Encounter for screening for malignant neoplasm of prostate (principal); N40.0 Benign prostatic hyperplasia without lower urinary tract symptoms; C61 Malignant neoplasm of prostate; R97.20 Elevated prostate specific antigen [PSA]
CPT/HCPCS: 36415; 84153

== ENCOUNTER 2024-05-24 10:12 | Outpatient (AMB) | payer MEDICARE, SELFPAY ==
--- NOTE | 2024-05-24 10:26 | A.OFFVIS_ITS ---
Intake Visit Reasons: 6m/PSA Intake Note: Patient is present for 6M/PSA Urology Medication:NONE Antibiotic Allergy:NONE Blood Thinner:NONE Linen Controller Required: No Allergies meperidine [From Demerol] Allergy (Unknown, Verified 05/24/24 10:26) Unknown HPI Comments Details: Avila is a pleasant male. He is a patient of Dr. Larkin as PCP and Dr. Lopez as [facility] PCP. He is seen for the following urologic conditions - prostate cancer - prostate nodule PSA control Continue to follow every 6 months out to 5 years Labs 11/20 P <0.1, T 22, 03/23 <0.1 T 66, 06/21 P 0.13 T 388, 11/21 P 0.15 369, 05/22 0.16 Prostate Cancer - 03/2223 grade group 2, initial PSA 4.2 - agent orange exposure 1968 through 07/20 completed radiation. [facility]. Twenty-five hyperfractionated sessions 05/20 SpaceOar Placement, GnRH administered 03/22 Biopsy [place] score: 7 (3+4) (left: base, mid and apex), 6 (3+3) (right mid medial and right apex lateral) ?Number cores positive: 8, Total number of cores: 15 % of tissue involved: 13 % of all tissue examined Periprostatic fat invasion:Not identified, Seminal vesicle invasion: Not identified, Perineural invasion: Present, Lymphovascular invasion: Not identified Imaging - 02/18 prostate MRI 55 g left mid peripheral posterior extending to right apical medial peripheral lesion 2.4 x 0.7 cm lesion PI-RADS 5 Elevated PSA PSA 10/16 3.8, 10/19 4.2 Background of enlarged prostate for many years Minimal urinary symptoms LUCY 2+ prostate nodule left apex Imaging - 02/18 prostate MRI 55 g left mid peripheral posterior extending to right apical medial peripheral lesion 2.4 x 0.7 cm lesion PI-RADS 5 PFSH Medical History Pollard's esophagus BPH (benign prostatic hyperplasia) PTSD (post-traumatic stress disorder) Elevated cholesterol HTN (hypertension) Surgical History Hx of prostate biopsy Hx of hernia repair Hx of tonsillectomy Hx of colonoscopy History of esophagogastroduodenoscopy (EGD) Hx of right knee surgery Social History Patient Tobacco Use Status: Former Tobacco user Tobacco use type: Cigarette Review of Systems Const Denies chills and Denies fever(s) Card Reports no additional complaints and Denies syncope Resp Denies cough GI Denies abdominal pain and Denies heartburn Reports as per HPI and Denies change in libido Neuro Denies syncope Psych Denies change in libido Endo Denies change in libido Physical Exam Const General: cooperative, healthy appearing, comfortable and no acute distress Orientation/consciousness: patient oriented x3 HEENT Face and sinus: Yes normal facial exam Mouth: moist mucous membranes Neck Neck: Yes normal visual inspection, Yes full ROM and Yes trachea midline Chest Chest palpation & inspection: normal inspection of the chest Resp Effort & Inspection: normal respiratory effort, able to speak in complete sentences and no respiratory distress GI Inspection: Yes normal to inspection Back/Spine/Pelvis Cervical Spine: normal cervical lordosis Thoracic/Lumbar Spine: thoracic and lumbar spine normal to inspection Skin General skin exam: no rashes or lesions noted Neuro General: patient oriented x3, gait normal, tone normal and moves all extremities Extrem General: Yes normal to inspection and Yes capillary refill normal Assessment & Plan Assessment & Plan (1) Prostate cancer: Comment: 03/22 clinically localized intermediate risk favorable Code(s): C61 - Malignant neoplasm of prostate Category: Medical (2) BPH (benign prostatic hyperplasia): Code(s): N40.0 - Benign prostatic hyperplasia without lower urinary tract symptoms Category: Medical Plan Six-month follow-up PSA office Orders: Orders Prostate Specific Antigen 6 Months C61 - Malignant neoplasm of prostate Patient Instructions: This note is constructed using voice recognition software. While every effort has been made to ensure accuracy rn imaging errors may have been included. Imaging studies, laboratory and physical exam results were discussed and reviewed in detail. No major barriers to patient understanding were identified. An opportunity to ask questions regarding the treatment plan was provided. All questions were answered. The patient expressed understanding and agreement with the above treatment plan. The patient is aware they should contact our office by phone for worsening of th eir current condition or the appearance of new urologic symptoms. Compliance is encouraged with any medications and followup testing that is ordered. It is a privilege to participate in the urologic care of your patient. If you have any questions or concerns regarding treatment for the above conditions, or other urologic issues, please do not hesitate to contact me. The office telephone contact is [phone]. Sincerely, Dr Jason Farley MD, [facility] - Urology Compassionate Specialist Care for the Genitourinary System Coding Level of Care Code Est Pt Level 3 (52398) Complex EM visit Add On G2211 Diagnoses Prostate cancer C61 BPH (benign prostatic hyperplasia) N40.0
== END 2024-05-24 11:15 | disposition home or self-care (01) ==
LOC: HO.HUSH 10:12
PROVIDERS: PCP Internal Medicine; Visit Provider Urology
DX: C61 Malignant neoplasm of prostate (principal); N40.0 Benign prostatic hyperplasia without lower urinary tract symptoms
CPT/HCPCS: 99213; G2211

== ENCOUNTER → 2024-05-24 10:12 | Outpatient (BNVA) | payer MEDICARE, SELFPAY | PROVIDERS: PCP Internal Medicine; Visit Provider Urology | DX: C61 Malignant neoplasm of prostate (principal); N40.0 Benign prostatic hyperplasia without lower urinary tract symptoms | CPT/HCPCS: 99212 ==

== ENCOUNTER 2024-11-09 09:22 | Outpatient (REF) | payer MEDICARE, SELFPAY ==
--- OUTSIDE RECORDS SUMMARY | 2024-11-09 10:26 | XMS_ITS | Patient Health Record ---
Author Organization [facility] Address [address] [place] [address] Care Team Providers Care Surgical Nurse Name Role Phone Ree Larkin MD Primary Care Provider Brian Quintero Jr Unavailable [phone] Allergies Allergen (clinical drug ingredient) Drug/Non Drug Allergy documented on EMR Reaction Allergy Type Onset Date Status meperidine Demerol Unknown Drug Allergy Active Reason For Referral No Information Medications Medication SIG (Take, Route, Frequency, Duration) Notes Start Date End Date Status Atorvastatin Calcium 40 MG 1 tablet Oral ly Once a day for 30 day(s) Active Lisinopril 20 MG 1 tablet Orally Once a day Active Metamucil Active Omeprazole 20 MG 1 capsule Orally Onc e a day Active Metamucil - 1 packet with 8 ounc es of liquid as needed Orally Three times a day Active Omeprazole 20 MG 1 capsule 30 minutes before morning meal Orally Twice a day for 30 day(s) 01/18/2020 Active Immunizations Vaccine Route Administration Date Status Comme nts Influenza Unknown 12/01/2020 Administered Influenza Unknown 12/21/2022 Administered Influenza Unknown 12/13/2023 Administered Social History Alcohol Screen Question Answer [...] Problem Status W/U Status Risk Notes Problem 541988189 Colon cancer screening (Z12.11) Active confirmed Problem 054364173 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 Problem 664974923 Generalized abdominal pain (R10.84) Active confirmed Problem Pollard esophagus (308972364) Pollard esophagus (K22.70) Active confirmed Problem 925741729 FH: colon cancer (Z80.0) Active confirmed Vital Signs Temperature 97.1 degrees Fahrenheit 09/26/2024 Blood pressure diastolic 01 mm Hg 09/26/2024 Height 68 in 09/26/2024 Blood pressure systolic 001 mm Hg 09/26/2024 Weight 184.6 lbs 09/26/2024 BMI 28.07 kg/m2 09/26/2024 Encounters Encounter Location Date Provider Diagnosis [facility] [address] [place] [address] 09/26/2024 Brian Brand Jr Pollard's esophagus without dysplasia K22.70 and Colon cancer screening Z12.11 Assessments Encounter Date Diagnosis (ICD Code) Assessment Notes Treatment Notes Treatment Clinical Notes Section Notes 09/26/2024 Colon cancer screening (ICD-10 - Z12.11) At this time, Alexander is doing well. We discussed Pollard's esophagus. We discussed continuing treatment with omeprazole. He will continue this. We discussed diet, lifestyle modifications, and weight management regarding gastroesophageal reflux disease today. We will see him in follow-up in 1 year. He is up-to-date on colorectal cancer screening. Follow-up will be due in January of next year. This is optional based on age but he is interested in continuing screening because of his family history. For his gas symptoms, he will continue simethicone. 09/26/2024 Pollard's esophagus without dysplasia (ICD-10 - K22.70) At this time, Alexander is doing well. We discussed Pollard's esophagus. We discussed continuing treatment with omeprazole. He will continue this. We discussed diet, lifestyle modifications, and weight management regarding gastroesophageal reflux disease today. We will see him in follow-up in 1 year. He is up-to-date on colorectal cancer screening. Follow-up will be due in January of next year. This is optional based on age but he is interested in continuing screening because of his family history. For his gas symptoms, he will continue simethicone. Plan Of Treatment Pending Test Test Name Order Date LIVER PROFILE 01/18/2020 LIPASE 01/18/2020 CBC w/o DIFF 01/18/2020 US ABD 01/18/2020 Future Test Test Name Order Date UPPER GI ENDOSCOPY 09/13/2012 UPPER GI ENDOSCOPY 08/27/2015 COLONOSCOPY 08/27/2015 UPPER GI ENDOSCOPY 01/12/2021 COLONOSCOPY 01/12/2021 Next Appt Details Provider Name:Brian rehmanbarby Weir, 09/23/2025 10:00:00 AM, [address], [address], [place], [address], Insurance Providers Payer Name Payer Address Payer Phone Subscriber Number Group Number Insured Name Patient Relationship to Insured Coverage Start Date Coverage End Date [facility] [address] [place] [phone] [id number] ALEXANDER MUNOZ Self - patient is the insured Medical (General) History Medical History History ICD Code hypertension BPH Dupuytren's contracture elevated cholesterol Tachycardia PTSD Pollard's esophagus, EGD 02/17, no [place] tt's on biopsy, followup optional Colon polyps, last colonosco py colonoscopy 02/17, hyperplastic polyps, five-year followup optional prostate cancer 2021, status post seed p lacement and hormonal therapy prostate cancer Surgical History Surgery Date(Month/Year) colonoscopy 01/07/16, hyperpl astic polyp. Five-year followup due to family history 01/18 right knee arthroscopy hernia repair x4 tonsillectomy
[2024-11-09 10:53] LABS: Prostate Specific Antigen 0.22 ng/mL (<0.05-4.0)
== END 2024-11-09 09:23 | disposition home or self-care (01) ==
LOC: HO.10HDL 09:22
PROVIDERS: Visit Provider Urology
DX: C61 Malignant neoplasm of prostate (principal); Z12.5 Encounter for screening for malignant neoplasm of prostate
CPT/HCPCS: 36415; 84153

== ENCOUNTER 2024-11-23 08:59 | Outpatient (AMB) | payer MEDICARE, SELFPAY ==
--- NOTE | 2024-11-23 09:00 | A.OFFVIS_ITS ---
Intake Visit Reasons: 6M follow up/ PSA Intake Note: patient presents today for: telehealth 6mo follow up urology medications: none blood thinners: none labs done 11/09/24: PSA 0.22 Youth Services Specialist Required: No Accompanied by: Self / Same As Patient Allergies meperidine (From Demerol) Allergy (Unknown, Verified 11/23/24 09:01) Unknown HPI Comments Details: Avila is a pleasant male. He is a patient of Dr. Larkin as PCP and [facility]. He is seen for the following urologic conditions - prostate cancer - prostate nodule Telemedicine Evaluation 15 min Consultation Anaergia Omkar Video Discussed results Minimal issues with urination Continue to follow every 6 months out to 5 years Labs 11/20 P <0.1, T 22, 03/23 <0.1 T 66, 06/21 P 0.13 T 388, 11/21 P 0.15 369, 05/22 0.16, 11/22 0.22 Prostate Cancer - 03/2223 grade group 2, initial PSA 4.2 - Agent Sterling Exposure 1968 through 07/20 completed radiation. [facility]. Twenty-five hyperfractionated sessions 05/20 SpaceOar Placement, GnRH administered 03/22 Biopsy Fifi score: 7 (3+4) (left: base, mid and apex), 6 (3+3) (right mid medial and right apex lateral) Number cores positive: 8, Total number of cores: 15 % of tissue involved: 13 % of all tissue examined Periprostatic fat invasion:Not identified, Seminal vesicle invasion: Not identified, Perineural invasion: Present, Lymphovascular invasion: Not identified Imaging - 02/18 prostate MRI 55 g left mid peripheral posterior extending to right apical medial peripheral lesion 2.4 x 0.7 cm lesion PI-RADS 5 Elevated PSA PSA 10/16 3.8, 10/19 4.2 Background of enlarged prostate for many years Minimal urinary symptoms LUCY 2+ prostate nodule left apex Imaging - 02/18 prostate MRI 55 g left mid peripheral posterior extending to right apical medial peripheral lesion 2.4 x 0.7 cm lesion PI-RADS 5 [facility] Medical History Pollard's esophagus BPH (benign prostatic hyperplasia) PTSD (post-traumatic stress disorder) Elevated cholesterol HTN (hypertension) Surgical History Hx of prostate biopsy Hx of hernia repair Hx of tonsillectomy Hx of colonoscopy History of esophagogastroduodenoscopy (EGD) Hx of right knee surgery Social History Patient Tobacco Use Status: Former Tobacco user Tobacco use type: Cigarette Review of Systems Const All systems reviewed & are unremarkable except as noted in HPI and below Reports no additional complaints Resp Reports no additional complaints GI Reports no additional complaints Reports as per HPI Musc Reports no additional complaints Physical Exam Telemedicine evaluation Appropriate responses Regular breathing rate and rhythm HEENT Head: Yes normal to inspection Ears: hearing grossly normal bilaterally Eyes General: appearance normal, both eyes and all related structures Neck Neck: Yes normal visual inspection Chest Chest palpation & inspection: normal inspection of the chest Resp Effort & Inspection: normal respiratory effort and able to speak in complete sentences Telehealth Telehealth Telehealth Platform: Anaergia Location of provider rendering services: practice address Location of patient: address on file Patient Identification confirmed using: Name, : Yes Telehealth method: video Patient verbally consented to treatment: Yes Patient verbally consented to billing insurance company: Yes Patient informed of any privacy concerns related to visit: Yes Minutes spent on Phone/Video with Pt.: 15 Assessment & Plan Assessment & Plan (1) Prostate cancer: Comment: 03/22 clinically localized intermediate risk favorable Code(s): C61 - Malignant neoplasm of prostate Category: Medical Plan Six-month follow-up PSA office Orders: Orders Prostate Specific Antigen 6 Months C61 - Malignant neoplasm of prostate Patient Instructions: This note is constructed using voice recognition software. While every effort has been made to ensure accuracy pharmacy service associate errors may have been included. Imaging studies, laboratory and physical exam results were discussed and reviewe d in detail. No major barriers to patient understanding were identified. An opportunity to ask questions regarding the treatment plan was provided. All questions were answered. The patient expressed understanding and agreement with the above treatment plan. The patient is aware they should contact our office by phone for worsening of their current condition or the appearance of new urologic symptoms. Compliance is encouraged with any medications and followup testing that is ordered. It is a privilege to participate in the urologic care of your patient. If you have any questions or concerns regarding treatment for the above conditions, or other urologic issues, please do not hesitate to contact me. The office telephone contact is [phone]. Sincerely, Dr Jason Farley MD, [facility] - Urology Compassionate Specialist Care for the Genitourinary System Coding Level of Care Code Tele Est Pt Level 3 (16001) Complex EM visit Add On G2211 Diagnoses Prostate cancer C61
--- OUTSIDE RECORDS SUMMARY | 2024-11-23 09:35 | XMS_ITS | Patient Health Record ---
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 Problem 132438895 Generalized abdominal pain (R10.84) Active confirmed Problem Pollard esophagus (424395126) Pollard esophagus (K22.70) Active confirmed Problem 403149018 FH: colon cancer (Z80.0) Active confirmed Vital Signs Temperature 97.1 degrees Fahrenheit 09/26/2024 Blood pressure diastolic 01 mm Hg 09/26/2024 Height 68 in 09/26/2024 Blood pressure systolic 001 mm Hg 09/26/2024 Weight 184.6 lbs 09/26/2024 BMI 28.07 kg/m2 09/26/2024 Encounters Encounter Location Date Provider Diagnosis [facility] [address] [place] [address] 09/26/2024 Brian Brand Jr Pollard's esophagus without [...] Name:Brian rehmanbarby Weir, 09/23/2025 10:00:00 AM, [address], [address], [place], [address], Insurance Providers Payer Name Payer Address Payer Phone Subscriber Number Group Number Insured Name Patient Relationship to Insured Coverage Start Date Coverage End Date [facility] [address] [facility] [place] [phone] [id number] ALEXANDER MUNOZ Self - patient is the insured Medical (General) History Medical History History ICD Code hypertension BPH Dupuytren's contracture elevated cholesterol Tachycardia PTSD Pollard's esophagus, EGD 02/17, no [place] tt's on biopsy, followup optional Colon polyps, last colonosco py colonoscopy 02/17, hyperplastic polyps, five-year followup optional prostate cancer 2021, status post seed p lacement and hormonal therapy prostate cancer Surgical History Surgery Date(Month/Year) colonoscopy 01/07/16, hyperpl astic polyp. Five-year followup due to family history 01/18 right knee arthroscopy hernia repair x4 tonsillectomy
== END 2024-11-23 10:19 | disposition home or self-care (01) ==
LOC: HO.HUSH 08:59
PROVIDERS: PCP Internal Medicine; Visit Provider Urology
DX: C61 Malignant neoplasm of prostate (principal)
CPT/HCPCS: 99213; G2211